=== PATIENT | female | born 1945 | race African-American/Black ===

== ENCOUNTER 2016-07-22 10:31 | Inpatient (IN) | payer MEDICARE, OTHER ==
[~2016-07-22] VITALS: Ht 162.6 cm; Wt 77.1 kg
[~2016-07-22 10:31] MED LIST: UNOBMED
[2016-07-22 10:39] LABS: ABG ALLEN TEST POSITIVE; ABG BASE EXCESS -0.9; ABG PCO2 33.1 mmHg (35.0-45.0)
[2016-07-22 11:12] LABS: ALANINE AMINOTRANSFERASE 7 U/L (3-33); ALBUMIN/GLOBULIN RATIO 0.9 (1.0-2.7); ANION GAP 23 (5-15); ASPARTATE AMINO TRANSFERASE 23 U/L (5-40); CARBON DIOXIDE 24 mEQ/L (20-30); CHLORIDE 90 mEQ/L (98-107); CREATININE 6.6 mg/dL (0.5-0.9); HEMOLYSIS 111; LIPASE 68 U/L (< 60); MAGNESIUM 2.2 mg/dL (1.7-2.5); PHOSPHORUS 5.6 mg/dL (2.5-4.8); SODIUM 137 mEQ/L (135-145); TOTAL PROTEIN 8.7 g/dL (6.6-8.7)
[2016-07-22 11:14] LABS: TROPONIN I < 0.30 ng/mL (<=0.30)
[2016-07-22 11:18] LABS: POTASSIUM 5.5 mEQ/L (3.4-4.9); REFLEX LACTIC ACID YES OR NO YES
[2016-07-22 11:19] LABS: BASOPHILS % (AUTO) 1.1 % (0.0-2.0); EOSINOPHILS % (AUTO) 1.3 % (0.0-3.0); LYMPHOCYTES % (AUTO) 19.4 % (20.0-45.0); MEAN CORPUSCULAR HEMOGLOBIN 34.3 PG (27.0-31.0); MEAN CORPUSCULAR HGB CONC 32.9 G/DL (32.0-36.0); MEAN CORPUSCULAR VOLUME 104 FL (80-99); MEAN PLATELET VOLUME 10.2 FL (6.5-10.1); MONOCYTES % (AUTO) 10.4 % (1.0-10.0); NEUTROPHILS % (AUTO) 67.8 % (45.0-75.0); PLATELET COUNT 217 K/UL (150-450); RED BLOOD COUNT 4.28 M/UL (4.20-5.40); RED CELL DISTRIBUTION WIDTH 14.6 % (11.6-14.8); WHITE BLOOD COUNT 11.1 K/UL (4.8-10.8)
[2016-07-22 11:20] VITALS: BP 184/70
[2016-07-22 11:21] LABS: APPEARANCE,URINE CLEAR; KETONES,URINE 1+ (NEGATIVE); LEUKOCYTE ESTERASE ,URINE 1+ (NEGATIVE); NITRITE,URINE NEGATIVE (NEGATIVE); PH,URINE 8 (4.5-8.0); PROTEIN,URINE 4+ (NEGATIVE); UROBILINOGEN,URINE NORMAL MG/DL (0.0-1.0)
[2016-07-22 11:25] LABS: INR 1.3 (0.9-1.1); PROTHROMBIN TIME 12.8 SEC (9.30-11.50)
[2016-07-22 11:32] LABS: BACTERIA,URINE FEW /HPF; SQUAMOUS EPITHELIAL CELL,UR FEW /LPF (NONE/OCC)
--- NOTE | 2016-07-22 11:40 | Diagnostic Imaging Report ---
Indications: Altered level of consciousness Technique: Continuous helical CT imaging of the brain was performed with nonionic exposure control on a Siemens sensation [address] scanner. Axial and coronal images were reconstructed at 5 mm slice thickness and interval. CTDI volume(s): 70 mGy Total DLP: 1322 mGy-cm Findings: Comparison: None Confluent low attenuation is present in the bilateral periventricular white matter. Ventricles, cisterns, and sulci are diffusely prominent. No evidence of mass or hemorrhage, mass effect, midline shift, hydrocephalus, or increased intracranial pressure. Bone window images are unremarkable. Left mastoid air cells partially opacified. Visualized paranasal sinuses and right mastoid air cells are clear. IMPRESSION: No evidence of acute intracranial pathology Bilateral cerebral periventricular white matter low attenuation, nonspecific, likely chronic microvascular ischemic in nature. Atrophy. Suggestion of mild left mastoiditis The CT scanner at [facility] is accredited by the [employer] and the scans are performed using protocols designed to limit radiation exposure to as low as reasonably achievable to attain images of sufficient resolution adequate for diagnostic evaluation.
--- NOTE | 2016-07-22 11:41 | Diagnostic Imaging Report ---
Indications: Chest pain Technique: Portable AP chest Findings: Comparison: 02/12/2006 Cardiac silhouette remains enlarged. Pulmonary vasculature remains within normal limits. Lungs and pleura remain clear. Desiccation of aortic arch again noted. There is been interval placement of pacemaker in right chest wall, stent in the region of the left subclavian vein. IMPRESSION: No evidence of acute cardiopulmonary disease, unchanged Stable cardiomegaly Interval right chest wall pacemaker placement Interval left clavian vein region stent placement, may relate to dialysis access
[2016-07-22] MEDS ORDERED: Calcium Gluconate 1gm/10ml vial IVP ONE (12:30)
[2016-07-22 12:43] VITALS: BP 179/81
--- NOTE | 2016-07-22 14:27 | Emergency Room Report ---
History of Present Illness General Chief Complaint: Altered Level of Consciousness Source: EMS Present Illness HPI The patient is sent in for altered level of consciousness. Accucheck in field was normal. Patient responding to all questions stating "yes". No h/o fevers, NVD, rashes. The patient is a dialysis patient and should have gone for dialysis today. Family member contacted EMS to bring the patient in. Allergies: Coded Allergies: No Known Allergies (Unverified , 07/22/16) Patient History Limited by: medical condition Past Medical History: see triage record Social History Narrative With daughter Reviewed Nursing Documentation: PMH: Agreed, PSxH: Agreed Nursing Documentation-PMH Hx Cardiac Problems: Yes Hx Hypertension: Yes Hx Diabetes: Yes Hx Dialysis: Yes - M-W-F Review of Systems All Other Systems: limited Physical Exam Vital Signs Date Time Temp Pulse Resp B/P Pulse Ox O2 Delivery O2 Flow Rate FiO2 07/22/16 10:19 98.1 120 16 213/109 97 Room Air Sp02 EP Interpretation: reviewed, normal General Appearance: no apparent distress, alert, Chronically Ill Head: normocephalic Eyes: bilateral eye normal inspection ENT: dry mucus membranes Neck: supple Respiratory: no rhonchi, no retraction, other - tachypnea Cardiovascular #1: no edema, tachycardia, irregularly irregular Cardiovascular #2: 2+ radial (L) - fistula L upper arm Gastrointestinal: normal inspection, normal bowel sounds, non tender, no mass, non-distended Musculoskeletal: back normal, decreased range of motion Neurologic: alert, responsive, motor weakness - bilateral, no resting tremor, other - answers "yes" to all questions Psychiatric: depressed affect - "yes" to all questions - LE weakness bilat Reflexes: 2+ knee (R), 2+ knee (L) Skin: normal inspection Medical Decision Making Diagnostic Impression: Primary Impression: Altered level of consciousness Additional Impressions: Hypoxia ESRD (end stage renal disease) on dialysis Hyperkalemia ER Course Patient presents with ALOC. She is tachypneic. Ddx: electrolyte abnormality, occult infection, CHF, AMI, bleed amongst others. Emergent evaluation with ABG , labs, EKG, CXR and CT of head. Patient appears slightly dry. Very complex patient needing full evaluation. ABG with hypoxia, slight increased vascularity on CXR. Potassium high - treated with calcium. No evidence of infection. Still with ALOC. Needs further evaluatoin and observatoin. Will need dialysis. Admit telemetry Dr. Mac. Laboratory Tests Test 07/22/16 10:32 07/22/16 10:35 07/22/16 10:52 07/22/16 11:33 Arterial Blood pH 7.447 (7.350-7.450) Arterial Blood Partial Pressure CO2 33.1 mmHg (35.0-45.0) L Arterial Blood Partial Pressure O2 73.3 mmHg (75.0-100.0) L Arterial Blood HCO3 22.3 mmol/L (22.0-26.0) Arterial Blood Oxygen Saturation 94.0 % (92.0-98.0) Arterial Blood Base Excess -0.9 Kody Test Positive White Blood Count 11.1 K/UL (4.8-10.8) H Red Blood Count 4.28 M/UL (4.20-5.40) Hemoglobin 14.7 G/DL (12.0-16.0) Hematocrit 44.7 % (37.0-47.0) Mean Corpuscular Volume 104 FL (80-99) H Mean Corpuscular Hemoglobin 34.3 PG (27.0-31.0) H Mean Corpuscular Hemoglobin Concent 32.9 G/DL (32.0-36.0) Red Cell Distribution Width 14.6 % (11.6-14.8) Platelet Count 217 K/UL (150-450) Mean Platelet Volume 10.2 FL (6.5-10.1) H Neutrophils (%) (Auto) 67.8 % (45.0-75.0) Lymphocytes (%) (Auto) 19.4 % (20.0-45.0) L Monocytes (%) (Auto) 10.4 % (1.0-10.0) H Eosinophils (%) (Auto) 1.3 % (0.0-3.0) Basophils (%) (Auto) 1.1 % (0.0-2.0) Prothrombin Time 12.8 SEC (9.30-11.50) H Prothrombin Time INR 1.3 (0.9-1.1) H PTT 29 SEC (23-33) Sodium Level 137 mEQ/L (135-145) Potassium Level 5.5 mEQ/L (3.4-4.9) H Chloride Level 90 mEQ/L (98-107) L Carbon Dioxide Level 24 mEQ/L (20-30) Anion Gap 23 (5-15) H Blood Urea Nitrogen 51 mg/dL (7-23) H Creatinine 6.6 mg/dL (0.5-0.9) H Estimate Glomerular Filtration Rate mL/min (>60) Glucose Level 149 mg/dL (74-106) H Lactic Acid Level 2.50 mmol/L (0.66-2.22) H 2.20 mmol/L (0.66-2.22) Calcium Level 10.0 mg/dL (8.6-10.2) Phosphorus Level 5.6 mg/dL (2.5-4.8) H Magnesium Level 2.2 mg/dL (1.7-2.5) Total Bilirubin 0.5 mg/dL (0.0-1.2) Aspartate Amino Transferase (AST) 23 U/L (5-40) Alanine Aminotransferase (ALT) 7 U/L (3-33) Alkaline Phosphatase 79 U/L (35-104) Total Creatine Kinase 194 U/L (26-140) H Troponin I < 0.30 ng/mL (<=0.30) Pro-B-Type Natriuretic Peptide 73104 pg/mL (0-125) H Total Protein 8.7 g/dL (6.6-8.7) Albumin 4.3 g/dL (3.5-5.2) Globulin 4.4 g/dL Albumin/Globulin Ratio 0.9 (1.0-2.7) L Lipase 68 U/L (< 60) H Urine Color Pale yellow Urine Appearance Clear Urine pH 8 (4.5-8.0) Urine Specific [place] 1.010 (1.005-1.035) Urine Protein 4+ (NEGATIVE) H Urine Glucose (UA) Negative (NEGATIVE) Urine Ketones 1+ (NEGATIVE) H Urine Occult Blood 3+ (NEGATIVE) H Urine Nitrite Negative (NEGATIVE) Urine Bilirubin Negative (NEGATIVE) Urine Urobilinogen Normal MG/DL (0.0-1.0) Urine Leukocyte Esterase 1+ (NEGATIVE) H Urine RBC 5-10 /HPF (0 - 2) H Urine WBC 2-4 /HPF (0 - 2) Urine Squamous Epithelial Cells Few /LPF (NONE/OCC) Urine Bacteria Few /HPF (NONE) EKG Diagnostic Results Rate: normal Rhythm: other - a flutter with variable block ST Segments: no acute changes Rhythm Strip Diag. Results EP Interpretation: yes Rhythm: no PVC's, no ectopy, other - a flutter Chest X-Ray Diagnostic Results EP Interpretation: Yes Findings: no consolidation, no pneumothorax, other - cardiomegally Number of Views: 1 CT/MRI/US Diagnostic Results CT/MRI/US Diagnostic Results : Imaging Test Ordered: head Impression no bleed, mass Last Vital Signs Date Time Temp Pulse Resp B/P Pulse Ox O2 Delivery O2 Flow Rate FiO2 07/22/16 12:43 97.2 105 20 179/81 100 Room Air Status: improved Disposition: ADMITTED INPATIENT Condition: Serious Referrals: NOT CHOSEN IPA/,REFERRING (PCP) Gregorio Villanueva M.D. Jul 22, 2016 14:27
[2016-07-22] MEDS ORDERED: Zolpidem 5mg tab ORAL PRN (14:30)
[2016-07-22] MEDS ORDERED: Mylanta II UD 30ml ORAL PRN (14:30)
[2016-07-22] MEDS ORDERED: DuoNeb 0.5-3(2.5)mg/3ml neb HHN PRN (14:30)
[2016-07-22] MEDS ORDERED: Miralax 17gm pkt ORAL PRN (14:30)
[2016-07-22 14:42] VITALS: BP 167/76
[2016-07-22 15:51] VITALS: BP 163/77
[2016-07-22] MEDS: NovoLOG Insulin Flexpen SUBQ SCH ×2 (16:30→20:34)
[2016-07-22 17:00] VITALS: BP 136/96
--- NOTE | 2016-07-22 19:57 | History and Physical ---
History of Present Illness General Date patient seen: Jul 22, 2016 Reason for Hospitalization: Altered Level of Consciousness Present Illness HPI 71 year old female with hx of ESRF on HD, ICD, brought in by paramedics altered level of consciousness. Pt is only oriented to herself. Doesn't know where she is and why. Pt is admitted to [facility] for evaluation of her acute encephalopathy. She seems comfortable and in no distress. Allergies: Coded Allergies: No Known Allergies (Unverified , 07/22/16) Medication History Miscellaneous Medications Unable to Obtain Medications (Unable To Obtain Meds), (Reported) Patient History Healthcare decision maker patient Resuscitation status Full Code Advanced Directive on File Past Medical/Surgical History Past Medical/Surgical History: (1) ICD (implantable cardioverter-defibrillator) in place (2) ESRD (end stage renal disease) on dialysis Review of Systems All Other Systems: negative except mentioned in HPI Physical Exam General Appearance: WD/WN, no apparent distress Lines, tubes and drains: peripheral, central line HEENT: normocephalic, atraumatic Cardiovascular/Chest: normal peripheral pulses, normal rate Abdomen: normal bowel sounds Last 24 Hour Vital Signs Date Time Temp Pulse Resp B/P Pulse Ox O2 Delivery O2 Flow Rate FiO2 07/22/16 17:00 97.3 86 18 136/96 96 Room Air 07/22/16 15:56 97.1 105 21 163/77 100 Room Air 07/22/16 15:51 97.1 105 21 163/77 100 Room Air 07/22/16 14:42 97.6 102 20 167/76 100 Room Air 07/22/16 12:43 97.2 105 20 179/81 100 Room Air 07/22/16 11:20 97.6 120 18 184/70 99 Room Air 07/22/16 10:19 98.1 120 16 213/109 97 Room Air Laboratory Tests Test 07/22/16 10:32 07/22/16 10:35 07/22/16 10:52 07/22/16 11:33 Arterial Blood pH 7.447 (7.350-7.450) Arterial Blood Partial Pressure CO2 33.1 mmHg (35.0-45.0) L Arterial Blood Partial Pressure O2 73.3 mmHg (75.0-100.0) L Arterial Blood HCO3 22.3 mmol/L (22.0-26.0) Arterial Blood Oxygen Saturation 94.0 % (92.0-98.0) Arterial Blood Base Excess -0.9 Kody Test Positive White Blood Count 11.1 K/UL (4.8-10.8) H Red Blood Count 4.28 M/UL (4.20-5.40) Hemoglobin 14.7 G/DL (12.0-16.0) Hematocrit 44.7 % (37.0-47.0) Mean Corpuscular Volume 104 FL (80-99) H Mean Corpuscular Hemoglobin 34.3 PG (27.0-31.0) H Mean Corpuscular Hemoglobin Concent 32.9 G/DL (32.0-36.0) Red Cell Distribution Width 14.6 % (11.6-14.8) Platelet Count 217 K/UL (150-450) Mean Platelet Volume 10.2 FL (6.5-10.1) H Neutrophils (%) (Auto) 67.8 % (45.0-75.0) Lymphocytes (%) (Auto) 19.4 % (20.0-45.0) L Monocytes (%) (Auto) 10.4 % (1.0-10.0) H Eosinophils (%) (Auto) 1.3 % (0.0-3.0) Basophils (%) (Auto) 1.1 % (0.0-2.0) Prothrombin Time 12.8 SEC (9.30-11.50) H Prothromb Time International Ratio 1.3 (0.9-1.1) H Activated Partial Thromboplast Time 29 SEC (23-33) Sodium Level 137 mEQ/L (135-145) Potassium Level 5.5 mEQ/L (3.4-4.9) H Chloride Level 90 mEQ/L (98-107) L Carbon Dioxide Level 24 mEQ/L (20-30) Anion Gap 23 (5-15) H Blood Urea Nitrogen 51 mg/dL (7-23) H Creatinine 6.6 mg/dL (0.5-0.9) H Estimat Glomerular Filtration Rate mL/min (>60) Glucose Level 149 mg/dL (74-106) H Lactic Acid Level 2.50 mmol/L (0.66-2.22) H 2.20 mmol/L (0.66-2.22) Calcium Level 10.0 mg/dL (8.6-10.2) Phosphorus Level 5.6 mg/dL (2.5-4.8) H Magnesium Level 2.2 mg/dL (1.7-2.5) Total Bilirubin 0.5 mg/dL (0.0-1.2) Aspartate Amino Transf (AST/SGOT) 23 U/L (5-40) Alanine Aminotransferase (ALT/SGPT) 7 U/L (3-33) Alkaline Phosphatase 79 U/L (35-104) Total Creatine Kinase 194 U/L (26-140) H Troponin I < 0.30 ng/mL (<=0.30) Pro-B-Type Natriuretic Peptide 95727 pg/mL (0-125) H Total Protein 8.7 g/dL (6.6-8.7) Albumin 4.3 g/dL (3.5-5.2) Globulin 4.4 g/dL Albumin/Globulin Ratio 0.9 (1.0-2.7) L Lipase 68 U/L (< 60) H Urine Color Pale yellow Urine Appearance Clear Urine pH 8 (4.5-8.0) Urine Specific [place] 1.010 (1.005-1.035) Urine Protein 4+ (NEGATIVE) H Urine Glucose (UA) Negative (NEGATIVE) Urine Ketones 1+ (NEGATIVE) H Urine Occult Blood 3+ (NEGATIVE) H Urine Nitrite Negative (NEGATIVE) Urine Bilirubin Negative (NEGATIVE) Urine Urobilinogen Normal MG/DL (0.0-1.0) Urine Leukocyte Esterase 1+ (NEGATIVE) H Urine RBC 5-10 /HPF (0 - 2) H Urine WBC 2-4 /HPF (0 - 2) Urine Squamous Epithelial Cells Few /LPF (NONE/OCC) Urine Bacteria Few /HPF (NONE) Height (Feet): 5 Height (Inches): 4.00 Weight (Pounds): 170 Medications Current Medications Medications (Trade) Dose Ordered Sig/Sherry Route PRN Reason Start Time Stop Time Status Last Admin Dose Admin Acetaminophen (Tylenol) 650 mg Q4H PRN ORAL fever 07/22/16 14:30 08/21/16 14:29 Al Hydroxide/Mg Hydroxide (Mylanta II) 30 ml Q6H PRN ORAL dyspepsia 07/22/16 14:30 08/21/16 14:29 Albuterol/ Ipratropium (DuoNeb 0.5-3(2.5)mg/3ml) 3 ml Q6HRT PRN HHN dyspnea 07/22/16 14:30 07/27/16 14:29 Clonidine HCl (Catapres) 0.1 mg Q4H PRN ORAL For High Blood Pressure 07/22/16 14:30 08/21/16 14:29 Dextrose (Dextrose 50%) STAT PRN IV Hypoglycemia 07/22/16 14:30 08/21/16 14:29 Furosemide (Lasix) 100 mg EVERY 8 HOURS PRN IV dyspnea 07/22/16 14:30 08/21/16 14:29 Heparin Sodium (Porcine) (Heparin 5000 units/ml) 5,000 units EVERY 12 HOURS SUBQ 07/22/16 21:00 08/21/16 20:59 Insulin Aspart (NovoLOG) BEFORE MEALS AND HS SUBQ 07/22/16 16:30 08/21/16 16:29 Morphine Sulfate (Morphine Sulfate) 1 mg EVERY 4 HOURS PRN IVP For Pain 07/22/16 14:30 07/29/16 14:29 Ondansetron HCl (Zofran) 4 mg Q6H PRN IVP Nausea & Vomiting 07/22/16 14:30 08/21/16 14:29 Polyethylene Glycol (Miralax) 17 gm HSPRN PRN ORAL Constipation 07/22/16 14:30 08/21/16 14:29 Zolpidem Tartrate (Ambien) 5 mg HSPRN PRN ORAL Insomnia 07/22/16 14:30 08/21/16 14:29 Assessment/Plan Problem List: (1) Acute encephalopathy ICD Codes: G93.40 - Encephalopathy, unspecified SNOMED: 5338987 (2) ICD (implantable cardioverter-defibrillator) in place ICD Codes: Z95.810 - Presence of automatic (implantable) cardiac defibrillator SNOMED: 733530316, 214340333 (3) ESRD (end stage renal disease) on dialysis ICD Codes: N18.6 - End stage renal disease; Z99.2 - Dependence on renal dialysis SNOMED: 627372685, 84687383 (4) Hypoxia ICD Codes: R09.02 - Hypoxemia SNOMED: 126645452, 45371103 (5) Hyperkalemia ICD Codes: E87.5 - Hyperkalemia; Z99.2 - Dependence on renal dialysis SNOMED: 57829860, 66069744 Assessment/Plan neuro evaluation Cardio evaluation to check out ICD renal evaluation check electrolytes. pt ot social service MISSY BARRY Jul 22, 2016 19:57
[2016-07-22 20:00] VITALS: BP 158/88
[2016-07-22] MEDS: Heparin 5000 units/ml inj SUBQ SCH (20:35)
[2016-07-23] VITALS (9 sets, daily range): BP systolic 101–177; BP diastolic 62–92
[2016-07-23] MEDS ORDERED: Heparin Sod 1000 units/ml 10ml IV ONE (04:00)
[2016-07-23] MEDS: NovoLOG Insulin Flexpen SUBQ SCH ×4 (05:51→21:00)
[2016-07-23 08:00] LABS: EOSINOPHILS % (AUTO) 2.1 % (0.0-3.0); LYMPHOCYTES % (AUTO) 21.3 % (20.0-45.0); MEAN CORPUSCULAR HEMOGLOBIN 32.4 PG (27.0-31.0); MEAN CORPUSCULAR HGB CONC 31.9 G/DL (32.0-36.0); MEAN CORPUSCULAR VOLUME 102 FL (80-99); MEAN PLATELET VOLUME 8.6 FL (6.5-10.1); MONOCYTES % (AUTO) 12.1 % (1.0-10.0); NEUTROPHILS % (AUTO) 63.5 % (45.0-75.0); PLATELET COUNT 203 K/UL (150-450); RED BLOOD COUNT 4.54 M/UL (4.20-5.40); RED CELL DISTRIBUTION WIDTH 14.3 % (11.6-14.8); WHITE BLOOD COUNT 9.6 K/UL (4.8-10.8)
[2016-07-23 08:11] LABS: ALANINE AMINOTRANSFERASE 5 U/L (3-33); ALBUMIN/GLOBULIN RATIO 1.1 (1.0-2.7); ANION GAP 22 (5-15); ASPARTATE AMINO TRANSFERASE 13 U/L (5-40); CALCIUM 9.9 mg/dL (8.6-10.2); CARBON DIOXIDE 24 mEQ/L (20-30); CHLORIDE 93 mEQ/L (98-107); CHOLESTEROL 221 mg/dL (< 200); CHOLESTEROL/HDL RATIO 4.8 (3.3-4.4); CREATININE 7.6 mg/dL (0.5-0.9); HEMOLYSIS 3; LDL CHOLESTEROL (CALC.) 137 mg/dL (60-99); POTASSIUM 4.5 mEQ/L (3.4-4.9); SODIUM 139 mEQ/L (135-145)
[2016-07-23 08:22] LABS: THYROID STIMULATING HORMONE 0.631 uIU/mL (0.300-4.500)
[2016-07-23] MEDS: Heparin 5000 units/ml inj SUBQ SCH (08:32)
[2016-07-23 09:17] LABS: HEMOGLOBIN A1C 5.5 % (< 6.0)
--- NOTE | 2016-07-23 10:31 | Cardiology Progress Note ---
Assessment/Plan Assessment/Plan encephalopathy possibly hypertensive esrd on dialysis htn dm hyperlipidemia icd implantation with subsequent sbe require replacement in 2015 afib reported cm d/w pmd dr blake [id number] meds updated will have ekg will keep on tele echo anti hypertensive meds dialysis repeat cardiac enzyme will follow [id number] Objective Last 24 Hour Vital Signs Date Time Temp Pulse Resp B/P Pulse Ox O2 Delivery O2 Flow Rate FiO2 07/23/16 08:38 98.2 94 20 152/92 95 Room Air 07/23/16 04:00 97.8 80 20 140/84 98 Room Air 07/23/16 04:00 97 07/23/16 01:38 161/75 07/23/16 00:00 97.6 94 21 177/79 98 Room Air 07/23/16 00:00 100 07/22/16 20:00 100 07/22/16 20:00 97.8 100 19 158/88 98 Room Air 07/22/16 17:00 97.3 86 18 136/96 96 Room Air 07/22/16 15:56 97.1 105 21 163/77 100 Room Air 07/22/16 15:51 97.1 105 21 163/77 100 Room Air 07/22/16 14:42 97.6 102 20 167/76 100 Room Air 07/22/16 12:43 97.2 105 20 179/81 100 Room Air 07/22/16 11:20 97.6 120 18 184/70 99 Room Air Intake and Output 07/22/16 07/23/16 19:00 07:00 Output Total 50 ml 400 ml Balance -50 ml -400 ml Output Urine Total 50 ml 400 ml Laboratory Tests Test 07/22/16 10:32 07/22/16 10:35 07/22/16 10:52 07/22/16 11:33 Arterial Blood pH 7.447 (7.350-7.450) Arterial Blood Partial Pressure CO2 33.1 mmHg (35.0-45.0) L Arterial Blood Partial Pressure O2 73.3 mmHg (75.0-100.0) L Arterial Blood HCO3 22.3 mmol/L (22.0-26.0) Arterial Blood Oxygen Saturation 94.0 % (92.0-98.0) Arterial Blood Base Excess -0.9 Kody Test Positive White Blood Count 11.1 K/UL (4.8-10.8) H Red Blood Count 4.28 M/UL (4.20-5.40) Hemoglobin 14.7 G/DL (12.0-16.0) Hematocrit 44.7 % (37.0-47.0) Mean Corpuscular Volume 104 FL (80-99) H Mean Corpuscular Hemoglobin 34.3 PG (27.0-31.0) H Mean Corpuscular Hemoglobin Concent 32.9 G/DL (32.0-36.0) Red Cell Distribution Width 14.6 % (11.6-14.8) Platelet Count 217 K/UL (150-450) Mean Platelet Volume 10.2 FL (6.5-10.1) H Neutrophils (%) (Auto) 67.8 % (45.0-75.0) Lymphocytes (%) (Auto) 19.4 % (20.0-45.0) L Monocytes (%) (Auto) 10.4 % (1.0-10.0) H Eosinophils (%) (Auto) 1.3 % (0.0-3.0) Basophils (%) (Auto) 1.1 % (0.0-2.0) Prothrombin Time 12.8 SEC (9.30-11.50) H Prothromb Time International Ratio 1.3 (0.9-1.1) H Activated Partial Thromboplast Time 29 SEC (23-33) Sodium Level 137 mEQ/L (135-145) Potassium Level 5.5 mEQ/L (3.4-4.9) H Chloride Level 90 mEQ/L (98-107) L Carbon Dioxide Level 24 mEQ/L (20-30) Anion Gap 23 (5-15) H Blood Urea Nitrogen 51 mg/dL (7-23) H Creatinine 6.6 mg/dL (0.5-0.9) H Estimat Glomerular Filtration Rate mL/min (>60) Glucose Level 149 mg/dL (74-106) H Lactic Acid Level 2.50 mmol/L (0.66-2.22) H 2.20 mmol/L (0.66-2.22) Calcium Level 10.0 mg/dL (8.6-10.2) Phosphorus Level 5.6 mg/dL (2.5-4.8) H Magnesium Level 2.2 mg/dL (1.7-2.5) Total Bilirubin 0.5 mg/dL (0.0-1.2) Aspartate Amino Transf (AST/SGOT) 23 U/L (5-40) Alanine Aminotransferase (ALT/SGPT) 7 U/L (3-33) Alkaline Phosphatase 79 U/L (35-104) Total Creatine Kinase 194 U/L (26-140) H Troponin I < 0.30 ng/mL (<=0.30) Pro-B-Type Natriuretic Peptide 78889 pg/mL (0-125) H Total Protein 8.7 g/dL (6.6-8.7) Albumin 4.3 g/dL (3.5-5.2) Globulin 4.4 g/dL Albumin/Globulin Ratio 0.9 (1.0-2.7) L Lipase 68 U/L (< 60) H Urine Color Pale yellow Urine Appearance Clear Urine pH 8 (4.5-8.0) Urine Specific [place] 1.010 (1.005-1.035) Urine Protein 4+ (NEGATIVE) H Urine Glucose (UA) Negative (NEGATIVE) Urine Ketones 1+ (NEGATIVE) H Urine Occult Blood 3+ (NEGATIVE) H Urine Nitrite Negative (NEGATIVE) Urine Bilirubin Negative (NEGATIVE) Urine Urobilinogen Normal MG/DL (0.0-1.0) Urine Leukocyte Esterase 1+ (NEGATIVE) H Urine RBC 5-10 /HPF (0 - 2) H Urine WBC 2-4 /HPF (0 - 2) Urine Squamous Epithelial Cells Few /LPF (NONE/OCC) Urine Bacteria Few /HPF (NONE) Test 07/23/16 07:15 White Blood Count 9.6 K/UL (4.8-10.8) Red Blood Count 4.54 M/UL (4.20-5.40) Hemoglobin 14.7 G/DL (12.0-16.0) Hematocrit 46.2 % (37.0-47.0) Mean Corpuscular Volume 102 FL (80-99) H Mean Corpuscular Hemoglobin 32.4 PG (27.0-31.0) H Mean Corpuscular Hemoglobin Concent 31.9 G/DL (32.0-36.0) L Red Cell Distribution Width 14.3 % (11.6-14.8) Platelet Count 203 K/UL (150-450) Mean Platelet Volume 8.6 FL (6.5-10.1) Neutrophils (%) (Auto) 63.5 % (45.0-75.0) Lymphocytes (%) (Auto) 21.3 % (20.0-45.0) Monocytes (%) (Auto) 12.1 % (1.0-10.0) H Eosinophils (%) (Auto) 2.1 % (0.0-3.0) Basophils (%) (Auto) 1.0 % (0.0-2.0) Sodium Level 139 mEQ/L (135-145) Potassium Level 4.5 mEQ/L (3.4-4.9) Chloride Level 93 mEQ/L (98-107) L Carbon Dioxide Level 24 mEQ/L (20-30) Anion Gap 22 (5-15) H Blood Urea Nitrogen 67 mg/dL (7-23) H Creatinine 7.6 mg/dL (0.5-0.9) H Estimat Glomerular Filtration Rate mL/min (>60) Glucose Level 128 mg/dL (74-106) H Hemoglobin A1c 5.5 % (< 6.0) Calcium Level 9.9 mg/dL (8.6-10.2) Total Bilirubin 0.5 mg/dL (0.0-1.2) Aspartate Amino Transf (AST/SGOT) 13 U/L (5-40) Alanine Aminotransferase (ALT/SGPT) 5 U/L (3-33) Alkaline Phosphatase 73 U/L (35-104) Total Protein 8.0 g/dL (6.6-8.7) Albumin 4.2 g/dL (3.5-5.2) Globulin 3.8 g/dL Albumin/Globulin Ratio 1.1 (1.0-2.7) Triglycerides Level 188 mg/dL (< 150) H Cholesterol Level 221 mg/dL (< 200) H LDL Cholesterol 137 mg/dL (60-99) H HDL Cholesterol 46 mg/dL (> 60) Cholesterol/HDL Ratio 4.8 (3.3-4.4) H Thyroid Stimulating Hormone (TSH) 0.631 uIU/mL (0.300-4.500) RD CLARK Jul 23, 2016 10:31
[2016-07-23] MEDS: Metoprolol 25mg tab ORAL SCH ×2 (11:44→23:09)
--- NOTE | 2016-07-23 12:36 | Pulmonology Progress Note ---
Assessment/Plan Problems: (1) Acute encephalopathy (2) ICD (implantable cardioverter-defibrillator) in place (3) ESRD (end stage renal disease) on dialysis (4) Hypoxia (5) Hyperkalemia Assessment/Plan all noted cardio and neuro saw the patient HD prn f/u labs pt/ot Subjective ROS Limited/Unobtainable: No Constitutional: Reports: no symptoms HEENT: Repors: no symptoms Respiratory: Reports: no symptoms Allergies: Coded Allergies: No Known Allergies (Unverified , 07/22/16) Objective Last 24 Hour Vital Signs Date Time Temp Pulse Resp B/P Pulse Ox O2 Delivery O2 Flow Rate FiO2 07/23/16 11:47 98.1 107 19 131/73 95 Room Air 07/23/16 11:44 107 131/73 07/23/16 11:44 131/73 07/23/16 08:38 98.2 94 20 152/92 95 Room Air 07/23/16 04:00 97.8 80 20 140/84 98 Room Air 07/23/16 04:00 97 07/23/16 01:38 161/75 07/23/16 00:00 97.6 94 21 177/79 98 Room Air 07/23/16 00:00 100 07/22/16 20:00 100 07/22/16 20:00 97.8 100 19 158/88 98 Room Air 07/22/16 17:00 97.3 86 18 136/96 96 Room Air 07/22/16 15:56 97.1 105 21 163/77 100 Room Air 07/22/16 15:51 97.1 105 21 163/77 100 Room Air 07/22/16 14:42 97.6 102 20 167/76 100 Room Air 07/22/16 12:43 97.2 105 20 179/81 100 Room Air Intake and Output 07/22/16 07/23/16 19:00 07:00 Output Total 50 ml 400 ml Balance -50 ml -400 ml Output Urine Total 50 ml 400 ml General Appearance: WD/WN HEENT: normocephalic, atraumatic Respiratory/Chest: chest wall non-tender, lungs clear Breasts: no masses Cardiovascular: normal peripheral pulses Abdomen: normal bowel sounds, soft, non tender Genitourinary: normal external genitalia Extremities: no cyanosis Skin: no rash Laboratory Tests 07/23/16 07:15: White Blood Count 9.6, Red Blood Count 4.54, Hemoglobin 14.7, Hematocrit 46.2, Mean Corpuscular Volume 102H, Mean Corpuscular Hemoglobin 32.4H, Mean Corpuscular Hemoglobin Concent 31.9L, Red Cell Distribution Width 14.3, Platelet Count 203, Mean Platelet Volume 8.6, Neutrophils (%) (Auto) 63.5, Lymphocytes (%) (Auto) 21.3, Monocytes (%) (Auto) 12.1H, Eosinophils (%) (Auto) 2.1, Basophils (%) (Auto) 1.0, Sodium Level 139, Potassium Level 4.5, Chloride Level 93L, Carbon Dioxide Level 24, Anion Gap 22H, Blood Urea Nitrogen 67H, Creatinine 7.6H, Estimat Glomerular Filtration Rate , Glucose Level 128H, Hemoglobin A1c 5.5, Calcium Level 9.9, Total Bilirubin 0.5, Aspartate Amino Transf (AST/SGOT) 13, Alanine Aminotransferase (ALT/SGPT) 5, Alkaline Phosphatase 73, Total Protein 8.0, Albumin 4.2, Globulin 3.8, Albumin/Globulin Ratio 1.1, Triglycerides Level 188H, Cholesterol Level 221H, LDL Cholesterol 137H, HDL Cholesterol 46, Cholesterol/HDL Ratio 4.8H, Thyroid Stimulating Hormone (TSH) 0.631 Current Medications Medications (Trade) Dose Ordered Sig/Sherry Route PRN Reason Start Time Stop Time Status Last Admin Dose Admin Acetaminophen (Tylenol) 650 mg Q4H PRN ORAL fever 07/22/16 14:30 08/21/16 14:29 Al Hydroxide/Mg Hydroxide (Mylanta II) 30 ml Q6H PRN ORAL dyspepsia 07/22/16 14:30 08/21/16 14:29 Albuterol/ Ipratropium 3 ml 3 ml Q6HRT PRN HHN dyspnea 07/22/16 14:30 07/27/16 14:29 Apixaban (Eliquis) 5 mg Q12H ORAL 07/23/16 21:00 08/22/16 20:59 Atorvastatin Calcium (Lipitor) 40 mg BEDTIME ORAL 07/23/16 21:00 08/22/16 20:59 Benazepril HCl (Lotensin) 40 mg DAILY ORAL 07/23/16 12:00 08/22/16 11:59 07/23/16 11:44 Clonidine HCl (Catapres) 0.1 mg Q4H PRN ORAL For High Blood Pressure 07/22/16 14:30 08/21/16 14:29 07/23/16 01:38 Clopidogrel Bisulfate (Plavix) 75 mg DAILY ORAL 07/23/16 13:00 08/22/16 12:59 Dextrose (Dextrose 50%) STAT PRN IV Hypoglycemia 07/22/16 14:30 08/21/16 14:29 Furosemide (Lasix) 100 mg EVERY 8 HOURS PRN IV dyspnea 07/22/16 14:30 08/21/16 14:29 Hydralazine HCl (Apresoline) 50 mg Q8HR ORAL 07/23/16 14:00 08/22/16 13:59 Insulin Aspart (NovoLOG) BEFORE MEALS AND HS SUBQ 07/22/16 16:30 08/21/16 16:29 07/23/16 11:46 Metoprolol Tartrate (Lopressor) 25 mg Q12HR ORAL 07/23/16 12:00 08/22/16 11:59 07/23/16 11:44 Morphine Sulfate (Morphine Sulfate) 1 mg EVERY 4 HOURS PRN IVP For Pain 07/22/16 14:30 07/29/16 14:29 Ondansetron HCl (Zofran) 4 mg Q6H PRN IVP Nausea & Vomiting 07/22/16 14:30 08/21/16 14:29 Polyethylene Glycol (Miralax) 17 gm HSPRN PRN ORAL Constipation 07/22/16 14:30 08/21/16 14:29 Sodium Chloride (Sodium Chloride 1000ml bag) 1,000 ml @ 500 mls/hr Q2H PRN IVLG sbp<90 during hd 07/23/16 04:00 08/22/16 03:59 Zolpidem Tartrate (Ambien) 5 mg HSPRN PRN ORAL Insomnia 07/22/16 14:30 08/21/16 14:29 MISSY BARRY Jul 23, 2016 12:36
[2016-07-23] MEDS: HydrALAZINE 50mg tab ORAL SCH ×2 (14:28→22:00)
--- NOTE | 2016-07-23 15:05 | Consultation ---
Consult Note Assessment/Plan Renal consult dictated # [id number] JANET SWARTZ Jul 23, 2016 15:04
[2016-07-23] MEDS: Nephrovite tab ORAL SCH (15:30)
--- NOTE | 2016-07-23 20:37 | Consultation ---
DATE OF CONSULTATION: 07/23/2016 REFERRING PHYSICIAN: Nakul Mac M.D. REASON FOR REFERRAL: Hypertension, altered mentation, renal failure, and congestive heart failure. HISTORY OF PRESENT ILLNESS: This is a 71-year-old female who is a followed at several places including previously at [facility] in 2013 for which she had a defibrillator placed by [employer] by Dr. Hunter Long. Information was obtained from my discussion with the patient, her sister as well as her primary care physician, Dr. Chong, phone number [phone]. The outcomes specialist run sheet indicates that the patient was transferred to the emergency room because of mental status changes. According to her sister, the supervisor natural gas plant called her indicating that the patient was rather confused and brought down to the emergency room at [facility], has been admitted. The sister indicate that she was able to talk with her but the patient just did not look like she knew who her sister was. The patient herself at the present time is awake and responsive. Denies any chest pain. Does admit to have some shortness of breath. She uses two pillows, has dizziness on standing and palpitations. She absolutely denies any pain, pressure, tightness or heaviness of any kind in her in her chest. PAST MEDICAL HISTORY: Positive for history of congestive heart failure, atrial fibrillation, cardiomyopathy, hypertension, diabetes mellitus. She has had an ICD implanted by Dr. Long in [address] Chong subsequently is apparently she developed infection and ICD was changed in 2014 in [facility]. End-stage renal disease, on hemodialysis. MEDICATIONS: Her medications at home include Lipitor 40 mg, benazepril 40 mg, Coreg 6.25 twice a day, Plavix 75 mg, Lasix 20 mg, hydralazine 50 twice a day, Lantus insulin 16 units, Renvela 800 mg three times a day, tramadol twice a day, Eliquis 2.5 twice a day as well as Xanax. Her most recent retail salesperson has been Dr. Sheldon Moore. ALLERGIES: She is not allergic to any medications. SOCIAL HISTORY: She does not dictate herself that she used to smoke more than 10 or 12 years ago but not at the present time. No alcohol and no drugs. She lives at home. 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 REVIEW OF SYSTEMS: Gastrointestinal: She denies any nausea or vomiting. No diarrhea or constipation. No bloody stools or black stools. Genitourinary: She does not have any burning on urination. She denies any blood in her urine. Pulmonary: Denies any significant cough and wheezing. Constitutional: She feels chills sometimes, she says no fevers. Neurologic: Numbness and tingling sensation in her hand on the right side. PHYSICAL EXAMINATION: GENERAL: Shows to be morbidly obese elderly female, in no respiratory distress. NECK: Is supple. No jugular venous distention. No abdominojugular reflux noted. LUNGS: Clear to auscultation and percussion. CARDIAC: S1 is normal. S2 is normal. Regular rate and rhythm. No heaves, thrills, gallops, or rubs are noted. ABDOMEN: Obese. Positive bowel sounds. Nontender. EXTREMITIES: There is no evidence of clubbing, cyanosis, nor is there any edema. NEUROLOGIC: She is awake and alert and responsive at the present time. LABORATORY VALUES: White count is 9.6, today down from 11.1 with hemoglobin of 14.7, platelet count of 203,000. Blood gases, pH of 7.47, pCO2 32, pO2 of 73, bicarb of 22. Sodium is 139, potassium 4.5, chloride 93, bicarbonate of 24, BUN 67, creatinine 1.6, glucose of 128. Lactic acid . Calcium is 9.9. Liver [place] [address] initially yesterday and total cholesterol 221 with a LDL of 137, and HDL of 46. TSH of 0.63. Lipase is 68. INR is 1.3. Urinalysis shows 5 to 10 RBCs, 2 to 4 WBCs. Chest x-ray performed in the emergency room last night shows no evidence of acute cardiopulmonary disease, stable cardiomegaly, right chest wall pacemaker device was noted, left subclavian vein short stent or dialysis catheter is noted. A CT scan of the head was performed that showed no evidence of acute intracranial pathology. [employer] run sheet was reviewed when she was found initially by the paramedics that she had a blood pressure documented by them was 229/161 subsequently to 213/109 subsequently her blood pressures have improved to 152/92. Checo Santiago M.D. DR: Renata JOB#: [id number] CC:
--- NOTE | 2016-07-23 20:48 | Consultation ---
DATE OF CONSULTATION: 07/23/2016 NEPHROLOGY CONSULTATION CONSULTING PHYSICIAN: Candido Garcia M.D. REFERRING PHYSICIAN: Nakul Mac M.D. REASON FOR CONSULTATION: End-stage renal disease, requiring hemodialysis. HISTORY OF PRESENT ILLNESS: This is a 71-year-old female, who was brought in by paramedics for change in mental status. The patient has some caregivers who called the paramedics. The patient is unable to provide much history. History is obtained from the chart and also talking to a sister who is at bedside. According to the sister, the patient could not even recognize her before. The patient has a history of end-stage renal disease and gets dialysis every Friday, Friday, and Friday. I was asked to see the patient on behalf of Dr. Pedroza for nephrology. The patient's last dialysis was last Friday. PAST MEDICAL HISTORY: The patient has a history of ICD placement, history of hypertension, diabetes, hyperlipidemia, and atrial fibrillation. MEDICATIONS: Reviewed in the MAR. ALLERGIES: No known drug allergies. SOCIAL HISTORY: No reported history of smoking or alcohol abuse. REVIEW OF SYSTEMS: Noncontributory. PHYSICAL EXAMINATION: GENERAL: The patient is an elderly female, in no acute distress. VITAL SIGNS: Blood pressure 129/72, pulse 107, respirations 19, and temperature 98.1 degrees. HEENT: [place] conjunctivae. Anicteric sclerae. NECK: Supple. LUNGS: Clear to auscultation. HEART: S1 and S2 without murmurs or rubs. ABDOMEN: Soft and nontender. EXTREMITIES: No cyanosis or edema. The patient has a left upper arm fistula with pseudoaneurysms with good bruit. LABORATORY FINDINGS: The chemistry panel shows a serum sodium 139, potassium 4.5, chloride 93, CO2 24, BUN 67, and creatinine 7.6. Blood sugar is 128. Albumin is 3.8. CBC shows a WBC of 9.6, hematocrit 46.2, hemoglobin 14.7, and platelets 203,000. UA shows 4+ protein and 5 to 10 RBCs per high-power field. ASSESSMENT: This is a 71-year-old female with history of end-stage renal disease, on hemodialysis every Friday, Friday, and Friday. She was admitted with change in mental status. The patient has diabetes and hypertension and atrial fibrillation status post implantable cardioverter-defibrillator placement. PLAN: The patient will be dialyzed today. Her laboratories will be followed. Adjustment were made in the patient's medication as needed. The patient will be seen by Dr. Pedroza tomorrow. Thank you very much for this consultation. Candido Garcia M.D. DR: JULISA JOB#: [id number] CC:
[2016-07-23] MEDS ORDERED: Carvedilol 6.25mg Tab ORAL SCH (21:00)
[2016-07-23] MEDS: Eliquis 2.5mg tablet ORAL SCH (22:01)
[2016-07-24] VITALS (7 sets, daily range): BP systolic 103–141; BP diastolic 49–69
[2016-07-24] MEDS: HydrALAZINE 50mg tab ORAL SCH ×3 (06:10→21:36)
[2016-07-24] MEDS: NovoLOG Insulin Flexpen SUBQ SCH ×4 (06:11→21:37)
[2016-07-24 06:25] LABS: BASOPHILS % (AUTO) 1.1 % (0.0-2.0); EOSINOPHILS % (AUTO) 2.6 % (0.0-3.0); LYMPHOCYTES % (AUTO) 25.3 % (20.0-45.0); MEAN CORPUSCULAR HEMOGLOBIN 32.5 PG (27.0-31.0); MEAN CORPUSCULAR HGB CONC 31.1 G/DL (32.0-36.0); MEAN CORPUSCULAR VOLUME 104 FL (80-99); MEAN PLATELET VOLUME 9.9 FL (6.5-10.1); NEUTROPHILS % (AUTO) 55.9 % (45.0-75.0); PLATELET COUNT 192 K/UL (150-450); RED CELL DISTRIBUTION WIDTH 14.6 % (11.6-14.8); WHITE BLOOD COUNT 9.8 K/UL (4.8-10.8)
[2016-07-24 06:51] LABS: TROPONIN I < 0.30 ng/mL (<=0.30)
[2016-07-24 07:03] LABS: ANION GAP 19 (5-15); CALCIUM 9.7 mg/dL (8.6-10.2); CARBON DIOXIDE 32 mEQ/L (20-30); CHLORIDE 89 mEQ/L (98-107); CREATININE 5.7 mg/dL (0.5-0.9); HEMOLYSIS 8; POTASSIUM 3.8 mEQ/L (3.4-4.9); SODIUM 140 mEQ/L (135-145)
[2016-07-24] MEDS: Eliquis 2.5mg tablet ORAL SCH ×2 (08:13→21:35)
[2016-07-24] MEDS: Nephrovite tab ORAL SCH (08:13)
[2016-07-24] MEDS: Metoprolol 25mg tab ORAL SCH ×2 (08:13→21:35)
--- NOTE | 2016-07-24 09:23 | General Progress Note ---
Assessment/Plan Status: stable Assessment/Plan status: This is a 71-year-old female with history of end-stage renal disease, on hemodialysis every Friday, Friday, and Friday. She was admitted with change in mental status. The patient has diabetes and hypertension and atrial fibrillation status post implantable cardioverter-defibrillator placement. Plan: Dialysed yesterday - Dialysis in am Gastric support Subjective ROS Limited/Unobtainable: No Constitutional: Reports: malaise Allergies: Coded Allergies: No Known Allergies (Unverified , 07/22/16) Objective Last 24 Hour Vital Signs Date Time Temp Pulse Resp B/P Pulse Ox O2 Delivery O2 Flow Rate FiO2 07/24/16 08:13 83 141/68 07/24/16 08:13 141/68 07/24/16 07:55 97.7 83 18 141/68 96 Room Air 07/24/16 06:10 129/63 07/24/16 04:00 98.2 18 129/63 83 Room Air 07/24/16 04:00 86 07/24/16 00:00 98.4 54 20 135/67 96 Room Air 07/24/16 00:00 80 07/23/16 23:09 90 133/67 07/23/16 22:00 108/63 07/23/16 21:56 97.4 120 20 123/69 96 Room Air 07/23/16 21:54 Room Air 07/23/16 20:00 96 07/23/16 20:00 97.7 108 16 101/63 98 Room Air 07/23/16 18:15 Room Air 07/23/16 18:15 98.1 100 20 122/67 96 Room Air 07/23/16 16:05 98.1 95 20 120/62 96 Room Air 07/23/16 16:00 99 07/23/16 15:43 142/78 07/23/16 14:28 129/72 07/23/16 12:00 101 07/23/16 11:47 98.1 107 19 131/73 95 Room Air 07/23/16 11:44 107 131/73 07/23/16 11:44 131/73 Intake and Output 07/23/16 07/24/16 18:59 06:59 Intake Total 720 ml 120 ml Output Total 1600 ml Balance 720 ml -1480 ml Intake Oral 720 ml 120 ml Output Urine Total 100 ml Hemodialysis UF 1500 ml # Bowel Movements 1 Laboratory Tests 07/24/16 05:10: White Blood Count 9.8, Red Blood Count 4.60, Hemoglobin 14.9, Hematocrit 48.0H, Mean Corpuscular Volume 104H, Mean Corpuscular Hemoglobin 32.5H, Mean Corpuscular Hemoglobin Concent 31.1L, Red Cell Distribution Width 14.6, Platelet Count 192, Mean Platelet Volume 9.9, Neutrophils (%) (Auto) 55.9, Lymphocytes (%) (Auto) 25.3, Monocytes (%) (Auto) 15.0H, Eosinophils (%) (Auto) 2.6, Basophils (%) (Auto) 1.1, Sodium Level 140, Potassium Level 3.8, Chloride Level 89L, Carbon Dioxide Level 32H, Anion Gap 19H, Blood Urea Nitrogen 38#H, Creatinine 5.7H, Estimat Glomerular Filtration Rate , Glucose Level 128H, Calcium Level 9.7, Troponin I < 0.30 Height (Feet): 5 Height (Inches): 4.00 Weight (Pounds): 170 General Appearance: no apparent distress Cardiovascular: normal rate, arrhythmia Respiratory/Chest: decreased breath sounds Abdomen: soft AUBREY SWEENEY Jul 24, 2016 09:23
--- NOTE | 2016-07-24 11:13 | Wound Care Consultation ---
Wound Assessment Wound Assessment #1: Wound Number: #1 Wound Present on Admission: Yes New Wound: No Status Change of Wound: No Wound Location Body Site Modif: right Wound Location Body Site: breast fold Wound Type: rash - intertrigo Percent of Wound [place]/Red: 100 Wound Drainage Amount: None Wound Drainage Odor: None/Absent Tissue Surrounding Wound: Intact Wound General Appearance: Reddened, Open to air Wound Assessment #2: Wound Number: #2 Wound Present on Admission: Yes New Wound: No Status Change of Wound: No Wound Location Body Site Modif: left Wound Location Body Site: breast fold Wound Type: rash - intertrigo Percent of Wound [place]/Red: 100 Wound Drainage Amount: None Wound Drainage Odor: None/Absent Tissue Surrounding Wound: Intact Wound General Appearance: Reddened, Open to air Wound Comment #1 left breast fold intertrigo rash. #2 right breast fold intertrigo rash. Recommendation. - Local wound care as ordered. - Keep site clean and dry. - Turn and reposition. -Assess and notify MD for any changes of condition. JUAN PABLO LINTON Jul 24, 2016 11:13
--- NOTE | 2016-07-24 12:47 | Pulmonology Progress Note ---
Assessment/Plan Problems: (1) Acute encephalopathy (2) ICD (implantable cardioverter-defibrillator) in place (3) ESRD (end stage renal disease) on dialysis (4) Hypoxia (5) Hyperkalemia Assessment/Plan all noted cardio and neuro saw the patient HD prn f/u labs bp better controlled heart rate controlled social servie to assess home safet pt/ot dc in am, probably home if safe. Subjective ROS Limited/Unobtainable: No Interval Events: improivng Allergies: Coded Allergies: No Known Allergies (Unverified , 07/22/16) Objective Last 24 Hour Vital Signs Date Time Temp Pulse Resp B/P Pulse Ox O2 Delivery O2 Flow Rate FiO2 07/24/16 12:00 89 07/24/16 11:30 97.9 90 18 113/63 95 Room Air 07/24/16 08:13 83 141/68 07/24/16 08:13 141/68 07/24/16 08:00 91 07/24/16 07:55 97.7 83 18 141/68 96 Room Air 07/24/16 06:10 129/63 07/24/16 04:00 98.2 18 129/63 83 Room Air 07/24/16 04:00 86 07/24/16 00:00 98.4 54 20 135/67 96 Room Air 07/24/16 00:00 80 07/23/16 23:09 90 133/67 07/23/16 22:00 108/63 07/23/16 21:56 97.4 120 20 123/69 96 Room Air 07/23/16 21:54 Room Air 07/23/16 20:00 96 07/23/16 20:00 97.7 108 16 101/63 98 Room Air 07/23/16 18:15 Room Air 07/23/16 18:15 98.1 100 20 122/67 96 Room Air 07/23/16 16:05 98.1 95 20 120/62 96 Room Air 07/23/16 16:00 99 07/23/16 15:43 142/78 07/23/16 14:28 129/72 Intake and Output 07/23/16 07/24/16 19:00 07:00 Intake Total 720 ml 120 ml Output Total 1600 ml Balance 720 ml -1480 ml Intake Oral 720 ml 120 ml Output Urine Total 100 ml Hemodialysis UF 1500 ml # Bowel Movements 1 General Appearance: WD/WN HEENT: normocephalic, atraumatic Respiratory/Chest: chest wall non-tender, lungs clear Cardiovascular: normal peripheral pulses, normal rate Abdomen: normal bowel sounds, soft, non tender Genitourinary: normal external genitalia Extremities: no cyanosis Skin: no rash, no lesions Neurologic/Psychiatric: senior program planner II-XII grossly normal, no motor/sensory deficits Microbiology Date/Time Source Procedure Growth Status 07/22/16 10:50 Blood Blood Culture - Preliminary NO GROWTH AFTER 24 HOURS Resulted 07/22/16 10:35 Blood Blood Culture - Preliminary NO GROWTH AFTER 24 HOURS Resulted 07/22/16 11:33 Nasal Nares MRSA Culture - Final Staphylococcus Aureus - Mrsa Complete 07/22/16 11:33 Rectum VRE Culture - Final NO VANCOMYCIN RESISTANT ENTEROCOCCUS ... Complete Laboratory Tests 07/24/16 05:10: White Blood Count 9.8, Red Blood Count 4.60, Hemoglobin 14.9, Hematocrit 48.0H, Mean Corpuscular Volume 104H, Mean Corpuscular Hemoglobin 32.5H, Mean Corpuscular Hemoglobin Concent 31.1L, Red Cell Distribution Width 14.6, Platelet Count 192, Mean Platelet Volume 9.9, Neutrophils (%) (Auto) 55.9, Lymphocytes (%) (Auto) 25.3, Monocytes (%) (Auto) 15.0H, Eosinophils (%) (Auto) 2.6, Basophils (%) (Auto) 1.1, Sodium Level 140, Potassium Level 3.8, Chloride Level 89L, Carbon Dioxide Level 32H, Anion Gap 19H, Blood Urea Nitrogen 38#H, Creatinine 5.7H, Estimat Glomerular Filtration Rate , Glucose Level 128H, Calcium Level 9.7, Phosphorus Level 4.7, Troponin I < 0.30 Current Medications Medications (Trade) Dose Ordered Sig/Sherry Route PRN Reason Start Time Stop Time Status Last Admin Dose Admin Acetaminophen (Tylenol) 650 mg Q4H PRN ORAL fever 07/22/16 14:30 08/21/16 14:29 Albuterol/ Ipratropium 3 ml 3 ml Q6HRT PRN HHN dyspnea 07/22/16 14:30 07/27/16 14:29 Apixaban (Eliquis) 5 mg Q12H ORAL 07/23/16 21:00 08/22/16 20:59 07/24/16 08:13 Atorvastatin Calcium (Lipitor) 40 mg BEDTIME ORAL 07/23/16 21:00 08/22/16 20:59 07/23/16 22:01 Benazepril HCl (Lotensin) 40 mg DAILY ORAL 07/23/16 12:00 08/22/16 11:59 07/24/16 08:13 Clonidine HCl (Catapres) 0.1 mg Q4H PRN ORAL For High Blood Pressure 07/22/16 14:30 08/21/16 14:29 07/23/16 01:38 Clopidogrel Bisulfate (Plavix) 75 mg DAILY ORAL 07/23/16 13:00 08/22/16 12:59 07/24/16 08:13 Dextrose (Dextrose 50%) STAT PRN IV Hypoglycemia 07/22/16 14:30 08/21/16 14:29 Hydralazine HCl (Apresoline) 50 mg Q8HR ORAL 07/23/16 14:00 08/22/16 13:59 07/24/16 06:10 Insulin Aspart (NovoLOG) BEFORE MEALS AND HS SUBQ 07/22/16 16:30 08/21/16 16:29 07/24/16 12:23 Metoprolol Tartrate (Lopressor) 25 mg Q12HR ORAL 07/23/16 12:00 08/22/16 11:59 07/24/16 08:13 Morphine Sulfate (Morphine Sulfate) 1 mg EVERY 4 HOURS PRN IVP For Pain 07/22/16 14:30 07/29/16 14:29 Nystatin (Nystop Powder) 1 applic THREE TIMES A DAY TOPIC 07/24/16 13:00 08/23/16 12:59 Ondansetron HCl (Zofran) 4 mg Q6H PRN IVP Nausea & Vomiting 07/22/16 14:30 08/21/16 14:29 07/24/16 08:14 Pantoprazole (Protonix) 40 mg BIAC ORAL 07/24/16 09:30 08/23/16 09:29 07/24/16 10:28 Polyethylene Glycol (Miralax) 17 gm HSPRN PRN ORAL Constipation 07/22/16 14:30 08/21/16 14:29 Sodium Chloride (Sodium Chloride 1000ml bag) 1,000 ml @ 500 mls/hr Q2H PRN IVLG sbp<90 during hd 07/23/16 04:00 08/22/16 03:59 Vitamin B Complex/ Vit C/Folic Acid (Nephrovite) 1 tab DAILY ORAL 07/23/16 15:30 08/22/16 15:29 07/24/16 08:13 Zolpidem Tartrate (Ambien) 5 mg HSPRN PRN ORAL Insomnia 07/22/16 14:30 08/21/16 14:29 MISSY BARRY Jul 24, 2016 12:47
[2016-07-24] MEDS: Nystatin Powder 100,000 units/gm 15gm TOPIC SCH ×2 (13:56→18:58)
[2016-07-24] MEDS: Morphine Sulfate 2mg/ml Inj IVP PRN (14:05)
--- NOTE | 2016-07-24 15:16 | Cardiology Report ---
APPROVED REPORT EXAM: Two-dimensional and M-mode echocardiogram with Doppler and color Doppler. INDICATION Chest Pain M-Mode DIMENSIONS IVSd1.7 (0.7-1.1cm)Left Atrium (MM)3.6 (1.6-4.0cm) LVDd4.0 (3.5-5.6cm)Aortic Root2.8 (2.0-3.7cm) PWd1.6 (0.7-1.1cm)Aortic Cusp Exc.1.6 (1.5-2.0cm) LVDs2.8 (2.5-4.0cm) PWs2.3 cm Technically difficult study due to poor acoustic windows. Normal left ventricular chamber size, systolic function and wall motion. Left ventricular ejection fraction estimated to be 55-60 %. Mild left ventricular hypertrophy on 2-D. Anterior Echo-free space, may be due to pericardial fat or effusion. Mild bi-atrial enlargement. Right ventricular chamber is within normal size. Mild focal aortic valve sclerosis with adequate cusp excursion Mild thickened mitral valve leaflets with normal excursion. Mild mitral annulus and aortic root calcification. Pulmonic valve not well visualized. Normal tricuspid valve structure. IVC not obtainable. A color flow and spectral Doppler study was performed and revealed: Trace aortic regurgitation. Trace mitral regurgitation. Can not determine left ventricular diastolic function by mitral diastolic velocities due to atrial fibrillation. Trace to mild tricuspid regurgitation. Tricuspid systolic velocities suggests peak right ventricular systolic pressure of 32 mmHg Moderate pulmonic regurgitation present.
--- NOTE | 2016-07-24 15:30 | Cardiology Report ---
APPROVED REPORT EKG Measurement Heart [id number] Atrial flutter with 3:1 AV conduction Pulmonary disease pattern Incomplete right bundle branch block Left anterior fascicular block Marked ST abnormality, possible inferior subendocardial injury Abnormal ECG
--- NOTE | 2016-07-24 15:51 | Cardiology Report ---
APPROVED REPORT EKG Measurement Heart [id number] Atrial flutter with variable AV block with occasional Incomplete right bundle branch block Prolonged QT Abnormal ECG
--- NOTE | 2016-07-24 19:42 | Cardiology Progress Note ---
Assessment/Plan Assessment/Plan encephalopathy possibly hypertensive esrd on dialysis htn dm hyperlipidemia icd implantation with subsequent sbe require replacement in 2014 afib / flutter reported cm d/w pmd dr blake [phone] on 07/23/2016 telel noted / reviewed echo noted ef ok anti hypertensive meds dialysis repeat cardiac enzyme neg ekg per rev atrial tachy variable block Subjective Cardiovascular: Denies: chest pain Respiratory: Denies: shortness of breath Gastrointestinal/Abdominal: Denies: abdominal pain Genitourinary: Denies: burning Objective Last 24 Hour Vital Signs Date Time Temp Pulse Resp B/P Pulse Ox O2 Delivery O2 Flow Rate FiO2 07/24/16 16:00 100 07/24/16 15:25 97.1 52 18 103/49 96 Room Air 07/24/16 13:50 113/63 07/24/16 12:00 89 07/24/16 11:30 97.9 90 18 113/63 95 Room Air 07/24/16 08:13 83 141/68 07/24/16 08:13 141/68 07/24/16 08:00 91 07/24/16 07:55 97.7 83 18 141/68 96 Room Air 07/24/16 06:10 129/63 07/24/16 04:00 98.2 18 129/63 83 Room Air 07/24/16 04:00 86 07/24/16 00:00 98.4 54 20 135/67 96 Room Air 07/24/16 00:00 80 07/23/16 23:09 90 133/67 07/23/16 22:00 108/63 07/23/16 21:56 97.4 120 20 123/69 96 Room Air 07/23/16 21:54 Room Air 07/23/16 20:00 96 07/23/16 20:00 97.7 108 16 101/63 98 Room Air General Appearance: no apparent distress, alert, obese Neck: no JVD Cardiovascular: normal rate, regular rhythm Respiratory/Chest: lungs clear, normal breath sounds Abdomen: normal bowel sounds, non tender, soft Extremities: no swelling Intake and Output 07/23/16 07/24/16 19:00 07:00 Intake Total 720 ml 120 ml Output Total 1600 ml Balance 720 ml -1480 ml Intake Oral 720 ml 120 ml Output Urine Total 100 ml Hemodialysis UF 1500 ml # Bowel Movements 1 Laboratory Tests Test 07/24/16 05:10 White Blood Count 9.8 K/UL (4.8-10.8) Red Blood Count 4.60 M/UL (4.20-5.40) Hemoglobin 14.9 G/DL (12.0-16.0) Hematocrit 48.0 % (37.0-47.0) H Mean Corpuscular Volume 104 FL (80-99) H Mean Corpuscular Hemoglobin 32.5 PG (27.0-31.0) H Mean Corpuscular Hemoglobin Concent 31.1 G/DL (32.0-36.0) L Red Cell Distribution Width 14.6 % (11.6-14.8) Platelet Count 192 K/UL (150-450) Mean Platelet Volume 9.9 FL (6.5-10.1) Neutrophils (%) (Auto) 55.9 % (45.0-75.0) Lymphocytes (%) (Auto) 25.3 % (20.0-45.0) Monocytes (%) (Auto) 15.0 % (1.0-10.0) H Eosinophils (%) (Auto) 2.6 % (0.0-3.0) Basophils (%) (Auto) 1.1 % (0.0-2.0) Sodium Level 140 mEQ/L (135-145) Potassium Level 3.8 mEQ/L (3.4-4.9) Chloride Level 89 mEQ/L (98-107) L Carbon Dioxide Level 32 mEQ/L (20-30) H Anion Gap 19 (5-15) H Blood Urea Nitrogen 38 mg/dL (7-23) #H Creatinine 5.7 mg/dL (0.5-0.9) H Estimat Glomerular Filtration Rate mL/min (>60) Glucose Level 128 mg/dL (74-106) H Calcium Level 9.7 mg/dL (8.6-10.2) Phosphorus Level 4.7 mg/dL (2.5-4.8) Troponin I < 0.30 ng/mL (<=0.30) Microbiology Date/Time Source Procedure Growth Status 07/22/16 10:50 Blood Blood Culture - Preliminary NO GROWTH AFTER 24 HOURS Resulted 07/22/16 10:35 Blood Blood Culture - Preliminary NO GROWTH AFTER 24 HOURS Resulted 07/22/16 11:33 Nasal Nares MRSA Culture - Final Staphylococcus Aureus - Mrsa Complete 07/22/16 11:33 Rectum VRE Culture - Final NO VANCOMYCIN RESISTANT ENTEROCOCCUS ... Complete RD CLARK Jul 24, 2016 19:42
[2016-07-25 04:00] VITALS: BP 104/51
[2016-07-25] MEDS: HydrALAZINE 50mg tab ORAL SCH ×2 (05:42→14:26)
[2016-07-25] MEDS: NovoLOG Insulin Flexpen SUBQ SCH ×2 (06:17→12:03)
[2016-07-25 07:57] LABS: BASOPHILS % (AUTO) 1.3 % (0.0-2.0); EOSINOPHILS % (AUTO) 1.8 % (0.0-3.0); LYMPHOCYTES % (AUTO) 24.9 % (20.0-45.0); MEAN CORPUSCULAR HEMOGLOBIN 32.5 PG (27.0-31.0); MEAN CORPUSCULAR HGB CONC 31.2 G/DL (32.0-36.0); MEAN CORPUSCULAR VOLUME 104 FL (80-99); MEAN PLATELET VOLUME 10.6 FL (6.5-10.1); MONOCYTES % (AUTO) 14.9 % (1.0-10.0); NEUTROPHILS % (AUTO) 57.1 % (45.0-75.0); PLATELET COUNT 188 K/UL (150-450); RED BLOOD COUNT 4.59 M/UL (4.20-5.40); RED CELL DISTRIBUTION WIDTH 14.1 % (11.6-14.8); WHITE BLOOD COUNT 10.2 K/UL (4.8-10.8)
[2016-07-25 08:00] VITALS: BP 100/62
[2016-07-25] MEDS: Metoprolol 25mg tab ORAL SCH (08:24)
[2016-07-25] MEDS: Nystatin Powder 100,000 units/gm 15gm TOPIC SCH ×2 (08:24→14:20)
[2016-07-25] MEDS: Morphine Sulfate 2mg/ml Inj IVP PRN (08:24)
[2016-07-25 08:25] LABS: ALANINE AMINOTRANSFERASE 6 U/L (3-33); ALBUMIN/GLOBULIN RATIO 1.1 (1.0-2.7); ANION GAP 18 (5-15); ASPARTATE AMINO TRANSFERASE 13 U/L (5-40); CALCIUM 9.8 mg/dL (8.6-10.2); CARBON DIOXIDE 30 mEQ/L (20-30); CHLORIDE 90 mEQ/L (98-107); CREATININE 8.6 mg/dL (0.5-0.9); CRP QUANT 0.9 mg/dL (< 0.5); HEMOLYSIS 4; MAGNESIUM 2.2 mg/dL (1.7-2.5); PHOSPHORUS 7.8 mg/dL (2.5-4.8); POTASSIUM 4.3 mEQ/L (3.4-4.9); SODIUM 138 mEQ/L (135-145); TOTAL PROTEIN 7.6 g/dL (6.6-8.7); URIC ACID 7.7 mg/dL (3.0-7.5)
[2016-07-25] MEDS: Nephrovite tab ORAL SCH (08:26)
[2016-07-25] MEDS: Eliquis 2.5mg tablet ORAL SCH (08:27)
[2016-07-25 08:54] LABS: HEMOGLOBIN A1C 5.6 % (< 6.0)
[2016-07-25 11:15] VITALS: BP 94/53
[2016-07-25] MEDS ORDERED: PLAVIX75 MG ORAL (12:05)
[2016-07-25] MEDS ORDERED: BENAZEPRIL HCL40 MG ORAL (12:05)
[2016-07-25] MEDS ORDERED: LOPRESSOR25 M1 ORAL (12:05)
[2016-07-25] MEDS ORDERED: APRESOLINE50 MG ORAL (12:05)
[2016-07-25] MEDS ORDERED: ELIQUIS2.5 MG ORAL (12:05)
[2016-07-25 14:26] VITALS: BP 119/64
--- NOTE | 2016-07-25 15:29 | General Progress Note ---
Assessment/Plan Status: stable - from renal stand Assessment/Plan status: This is a 71-year-old female with history of end-stage renal disease, on hemodialysis every Friday, Friday, and Friday. She was admitted with change in mental status. The patient has diabetes and hypertension and atrial fibrillation status post implantable cardioverter-defibrillator placement. Plan: Dialysed today adjust BP meds- Add Phos binders Gastric support Subjective ROS Limited/Unobtainable: No Constitutional: Reports: malaise Allergies: Coded Allergies: No Known Allergies (Unverified , 07/22/16) Objective Last 24 Hour Vital Signs Date Time Temp Pulse Resp B/P Pulse Ox O2 Delivery O2 Flow Rate FiO2 07/25/16 14:26 119/64 07/25/16 12:00 88 07/25/16 11:15 96.3 79 18 94/53 96 Room Air 07/25/16 11:15 Room Air 07/25/16 08:54 96.3 07/25/16 08:25 100/62 07/25/16 08:24 82 100/62 07/25/16 08:10 Room Air 07/25/16 08:00 84 07/25/16 08:00 96.4 82 18 100/62 97 Room Air 07/25/16 05:42 104/60 07/25/16 04:00 98.8 80 18 104/51 98 Room Air 07/25/16 04:00 86 07/25/16 00:00 72 07/24/16 23:55 97.8 92 18 116/66 91 Room Air 07/24/16 21:36 119/69 07/24/16 21:35 87 119/69 07/24/16 20:00 97.7 93 18 119/69 92 Room Air 07/24/16 20:00 87 07/24/16 16:00 100 07/24/16 15:25 97.1 52 18 103/49 96 Room Air Intake and Output 07/24/16 07/25/16 19:00 07:00 Intake Total 500 ml 220 ml Output Total 50 ml Balance 450 ml 220 ml Intake Oral 500 ml 220 ml Output Urine Total 50 ml # Voids 1 # Bowel Movements 2 Laboratory Tests 07/25/16 07:30: White Blood Count 10.2, Red Blood Count 4.59, Hemoglobin 14.9, Hematocrit 47.8H , Mean Corpuscular Volume 104H, Mean Corpuscular Hemoglobin 32.5H, Mean Corpuscular Hemoglobin Concent 31.2L, Red Cell Distribution Width 14.1, Platelet Count 188, Mean Platelet Volume 10.6H, Neutrophils (%) (Auto) 57.1, Lymphocytes (%) (Auto) 24.9, Monocytes (%) (Auto) 14.9H, Eosinophils (%) (Auto) 1.8, Basophils (%) (Auto) 1.3, Sodium Level 138, Potassium Level 4.3, Chloride Level 90L, Carbon Dioxide Level 30, Anion Gap 18H, Blood Urea Nitrogen 57H, Creatinine 8.6#H, Estimat Glomerular Filtration Rate , Glucose Level 150H, Hemoglobin A1c 5.6, Uric Acid 7.7H, Calcium Level 9.8, Phosphorus Level 7.8H, Magnesium Level 2.2, Total Bilirubin 0.8, Gamma Glutamyl Transpeptidase 39H, Aspartate Amino Transf (AST/SGOT) 13, Alanine Aminotransferase (ALT/SGPT) 6, Alkaline Phosphatase 69, C-Reactive Protein, Quantitative 0.9H, Pro-B-Type Natriuretic Peptide 84291F, Total Protein 7.6, Albumin 4.0, Globulin 3.6, Albumin/Globulin Ratio 1.1 Height (Feet): 5 Height (Inches): 4.00 Weight (Pounds): 170 General Appearance: no apparent distress Respiratory/Chest: decreased breath sounds Objective other PE not changed AUBREY SWEENEY Jul 25, 2016 15:29
[2016-07-25] MEDS ORDERED: HydrALAZINE 50mg tab ORAL SCH (22:00)
[2016-07-26] MEDS ORDERED: Benazepril 10mg tab ORAL SCH (09:00)
--- NOTE | 2016-07-26 10:49 | Discharge Summary ---
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
--- NOTE | 2016-07-27 00:38 | Discharge Summary 2 SIG ---
DATE OF ADMISSION: 07/22/2016 DATE OF DISCHARGE: 07/25/2016 CONSULTANTS: 1. Marcos Pedroza M.D. 2. Checo Santiago M.D. BRIEF HOSPITAL COURSE: The patient is a 71-year-old female with history of end-stage renal failure, on hemodialysis and pacemaker was brought in by paramedics for altered level of consciousness. The patient had a scheduled dialysis, family members called paramedics. The patient was brought to [facility] for further evaluation. At ED, CT of the head showed no bleed and no mass. Chest x-ray showed no evidence of acute cardiopulmonary disease with a pacemaker on the right chest wall and a left chest dialysis access. She was admitted for further workup. Dr. Pedroza was consulted for inpatient hemodialysis. She was also seen by Dr. Santiago. Paramedics report showed elevated blood pressure in the 220s systolic. Case was discussed with the patient's PMD, Dr. Chong. She was resumed on her antihypertensive medications. Echocardiogram done showed left ventricular ejection fraction of 55% to 60%. Cardiac enzymes have been negative. She was also given phosphate binders and gastric support. Blood pressure improved and the patient was discharged home with home health. FINAL DIAGNOSES: 1. Acute metabolic encephalopathy possibly secondary to hypertension. 2. Hypertensive urgency. 3. End-stage renal disease, on hemodialysis. 4. Diabetes mellitus. 5. Hyperlipidemia. 6. Implantable cardioverter-defibrillator implantation. 7. Atrial fibrillation/flutter. 8. Cardiomyopathy. 9. Hyperkalemia. 10. Bilateral breast intertrigo rash present on admission. Nakul Mac M.D. I have been assigned to dictate discharge summary on this account and I was not involved in the patient's management. Jordana Emerson N.P. DR: MARY JOB#: [id number] CC: MARY
== END 2016-07-25 16:20 | disposition home health service (06) | DRG 77 ==
LOC: EDBD 10:31 → EMR 10:40 → 2E 13:16 → EDBEDREQ 15:37
PROC: 5A1D00Z (ICD-10-PCS; principal; 2016-07-25)
DX: I67.4 Hypertensive encephalopathy (principal); N18.6 End stage renal disease; I42.9 Cardiomyopathy, unspecified; I12.0 Hypertensive chronic kidney disease with stage 5 chronic kidney disease or end stage renal disease; I48.92 Unspecified atrial flutter; I16.0 Hypertensive urgency; E87.5 Hyperkalemia; E11.9 Type 2 diabetes mellitus without complications; Z99.2 Dependence on renal dialysis; R09.02 Hypoxemia; Z95.810 Presence of automatic (implantable) cardiac defibrillator; E78.5 Hyperlipidemia, unspecified; L30.4 Erythema intertrigo; I48.91 Unspecified atrial fibrillation; Z79.4 Long term (current) use of insulin; Z87.891 Personal history of nicotine dependence; E66.01 Morbid (severe) obesity due to excess calories; Z68.29 Body mass index [BMI] 29.0-29.9, adult
CPT/HCPCS: 36415; 36600; 70450; 71010; 80048; 80053; 80061; 81003; 82550; 82803; 82962; 82977; 83036; 83605; 83690; 83735; 83880; 84100; 84443; 84484; 84550; 85025; 85610; 85730; 86140; 87040; 87081; 93005; 93306; J1815; J2405

== ENCOUNTER 2016-07-29 12:04 | Inpatient (IN) | payer MEDICARE, OTHER ==
[~2016-07-29] VITALS: Ht 154.9 cm; Wt 72.6 kg
[~2016-07-29 12:04] MED LIST changes: +APRESOLINE50 MG ORAL; +BENAZEPRIL HCL40 MG ORAL; +ELIQUIS2.5 MG ORAL; +LOPRESSOR25 M1 ORAL; +PLAVIX75 MG ORAL
[2016-07-29 12:12] VITALS: BP 116/84
[2016-07-29] MEDS ORDERED: Diltiazem 25mg/5ml IV ONE ×2 (12:30→14:30)
[2016-07-29 12:39] VITALS: BP 82/26
[2016-07-29 12:52] LABS: BASOPHILS % (AUTO) 1.5 % (0.0-2.0); EOSINOPHILS % (AUTO) 2.6 % (0.0-3.0); LYMPHOCYTES % (AUTO) 16.9 % (20.0-45.0); MEAN CORPUSCULAR HEMOGLOBIN 32.8 PG (27.0-31.0); MEAN CORPUSCULAR HGB CONC 30.8 G/DL (32.0-36.0); MEAN CORPUSCULAR VOLUME 107 FL (80-99); MEAN PLATELET VOLUME 11.6 FL (6.5-10.1); MONOCYTES % (AUTO) 10.7 % (1.0-10.0); NEUTROPHILS % (AUTO) 68.3 % (45.0-75.0); PLATELET COUNT 168 K/UL (150-450); RED BLOOD COUNT 3.84 M/UL (4.20-5.40); RED CELL DISTRIBUTION WIDTH 15.6 % (11.6-14.8)
[2016-07-29 12:59] LABS: ALANINE AMINOTRANSFERASE 8 U/L (3-33); ANION GAP 20 (5-15); ASPARTATE AMINO TRANSFERASE 17 U/L (5-40); CALCIUM 9.3 mg/dL (8.6-10.2); CARBON DIOXIDE 28 mEQ/L (20-30); CHLORIDE 92 mEQ/L (98-107); CREATININE 7.3 mg/dL (0.5-0.9); HEMOLYSIS 18; POTASSIUM 3.7 mEQ/L (3.4-4.9); SODIUM 140 mEQ/L (135-145); TOTAL PROTEIN 7.7 g/dL (6.6-8.7)
[2016-07-29 13:02] LABS: TROPONIN I 0.32 ng/mL (<=0.30)
[2016-07-29 13:10] LABS: CKMB 3.2 ng/mL (< 3.8)
[2016-07-29] MEDS ORDERED: Heparin 5000 units/ml inj IV ONE (13:15)
[2016-07-29] MEDS ORDERED: Heparin 25,000u/D5W 500ml 500 ML IV SCH ×2 (13:15→18:30)
[2016-07-29 13:21] LABS: BILIRUBIN,DIRECT 0.4 mg/dL (0.1-0.3)
[2016-07-29 13:48] VITALS: BP 105/70
--- NOTE | 2016-07-29 14:48 | Emergency Room Report ---
History of Present Illness General Chief Complaint: Chest Pain Source: Patient, EMS Present Illness HPI Patient is a 71-year-old female who presented after increased chest tightness. Patient had onset of symptoms during dialysis. Patient had recently been hospitalized for altered mental status. Patient had unknown length of time of dialysis prior to the chest pain onset. The patient prior history of atrial flutter with variable block. The patient was noted to have a some chest pain which was somewhat improved with nitroglycerin. The patient was given aspirin by EMS. Allergies: Coded Allergies: No Known Allergies (Unverified , 07/22/16) Patient History Past Medical History: see triage record, HTN, dialysis Last Menstrual Period: na Reviewed Nursing Documentation: PMH: Agreed, PSxH: Agreed Nursing Documentation-PMH Hx Cardiac Problems: Yes Hx Hypertension: Yes Hx Pacemaker: Yes Hx Diabetes: Yes Hx Cancer: No Hx Gastrointestinal Problems: No Hx Dialysis: Yes - M-W-F Hx Neurological Problems: No Review of Systems All Other Systems: negative except mentioned in HPI Physical Exam Vital Signs Date Time Temp Pulse Resp B/P Pulse Ox O2 Delivery O2 Flow Rate FiO2 07/29/16 11:56 98.2 140 20 116/84 100 Nasal Cannula 2.0 Sp02 EP Interpretation: reviewed, normal General Appearance: normal inspection, well appearing, alert, GCS 15, mild distress, obese Head: atraumatic Eyes: bilateral eye other - left eye blindess ENT: normal ENT inspection, hearing grossly normal, normal voice Neck: normal inspection, full range of motion, supple, no bony tend Respiratory: normal inspection, lungs clear, normal breath sounds, no respiratory distress, no retraction, no wheezing Cardiovascular #1: regular rate, rhythm, edema - trace edema Gastrointestinal: normal inspection, normal bowel sounds, non tender, soft, no guarding, no hernia Genitourinary: no CVA tenderness Musculoskeletal: normal inspection, back normal, normal range of motion Neurologic: normal inspection, alert, responsive, speech normal Psychiatric: normal inspection, judgement/insight normal, mood/affect normal Skin: normal inspection, normal color, no rash Medical Decision Making Diagnostic Impression: Primary Impression: Chest pain Additional Impressions: Atrial flutter NSTEMI (non-ST elevated myocardial infarction) ER Course Patient presented for chest pain. Differential diagnosis included but was not limited to acute coronary syndrome, pulmonary embolism, pneumonia, aortic dissection, shingles, pneumothorax, aortic dissection, esophageal rupture, pericarditis. Because of complexity of patient's case laboratory testing and imaging studies were ordered. EKG interpreted by me showed atrial flutter with 2-1 block. Patient was given IV diltiazem with improvement in heart rate. Patient was subsequently given normal saline for mild hypotension. The patient was given additional dose of diltiazem. Laboratory testing showed evidence of troponin elevation. Dr. Santiago was contacted for inpatient cardiology consult. Dr. Mac was contacted for inpatient management due to complexity of medical condition. Labs Test 07/29/16 12:10 White Blood Count 14.0 K/UL (4.8-10.8) Red Blood Count 3.84 M/UL (4.20-5.40) Hemoglobin 12.6 G/DL (12.0-16.0) Hematocrit 40.9 % (37.0-47.0) Mean Corpuscular Volume 107 FL (80-99) Mean Corpuscular Hemoglobin 32.8 PG (27.0-31.0) Mean Corpuscular Hemoglobin Concent 30.8 G/DL (32.0-36.0) Red Cell Distribution Width 15.6 % (11.6-14.8) Platelet Count 168 K/UL (150-450) Mean Platelet Volume 11.6 FL (6.5-10.1) Neutrophils (%) (Auto) 68.3 % (45.0-75.0) Lymphocytes (%) (Auto) 16.9 % (20.0-45.0) Monocytes (%) (Auto) 10.7 % (1.0-10.0) Eosinophils (%) (Auto) 2.6 % (0.0-3.0) Basophils (%) (Auto) 1.5 % (0.0-2.0) Activated Partial Thromboplast Time 24 SEC (23-33) Sodium Level 140 mEQ/L (135-145) Potassium Level 3.7 mEQ/L (3.4-4.9) Chloride Level 92 mEQ/L (98-107) Carbon Dioxide Level 28 mEQ/L (20-30) Anion Gap 20 (5-15) Blood Urea Nitrogen 60 mg/dL (7-23) Creatinine 7.3 mg/dL (0.5-0.9) Estimat Glomerular Filtration Rate mL/min (>60) Glucose Level 127 mg/dL (74-106) Calcium Level 9.3 mg/dL (8.6-10.2) Total Bilirubin 1.2 mg/dL (0.0-1.2) Direct Bilirubin 0.4 mg/dL (0.1-0.3) Aspartate Amino Transf (AST/SGOT) 17 U/L (5-40) Alanine Aminotransferase (ALT/SGPT) 8 U/L (3-33) Alkaline Phosphatase 77 U/L (35-104) Total Creatine Kinase 85 U/L (26-140) Creatine Kinase MB 3.2 ng/mL (< 3.8) Creatine Kinase MB Relative Index 3.7 Troponin I 0.32 ng/mL (<=0.30) Pro-B-Type Natriuretic Peptide 6333 pg/mL (0-125) Total Protein 7.7 g/dL (6.6-8.7) Albumin 3.9 g/dL (3.5-5.2) Globulin 3.8 g/dL Albumin/Globulin Ratio 1.0 (1.0-2.7) EKG Diagnostic Results Rate: tachycardiac ST Segments: other - lateral st depression Chest X-Ray Diagnostic Results EP Interpretation: Yes Findings: no effusion, no pneumothorax, no acute cardiopulmonary disease Number of Views: 1 Last Vital Signs Date Time Temp Pulse Resp B/P Pulse Ox O2 Delivery O2 Flow Rate FiO2 07/29/16 13:48 112 20 105/70 97 Room Air 07/29/16 12:12 2.0 07/29/16 11:56 98.2 Status: unchanged Disposition: ADMITTED INPATIENT Condition: Serious Referrals: NON PHYSICIAN (PCP) Ryan Billy Jul 29, 2016 14:48
[2016-07-29] MEDS ORDERED: Enalaprilat 2.5mg/2ml Inj IV PRN (15:30)
[2016-07-29] MEDS ORDERED: Miralax 17gm pkt ORAL PRN (15:30)
[2016-07-29] MEDS ORDERED: Eliquis 2.5mg tablet ORAL SCH (15:30)
[2016-07-29] MEDS ORDERED: DuoNeb 0.5-3(2.5)mg/3ml neb HHN PRN (15:30)
[2016-07-29] MEDS ORDERED: Morphine Sulfate 2mg/ml Inj IVP PRN (15:30)
[2016-07-29] MEDS ORDERED: Diltiazem 25mg/5ml IV PRN (15:30)
[2016-07-29] MEDS ORDERED: Nitroglycerin Subl 0.4mg tab (Bottle Of 25) SL PRN (15:30)
[2016-07-29 16:02] VITALS: BP 141/65
--- NOTE | 2016-07-29 16:19 | Diagnostic Imaging Report ---
Indication: SOB, chest pain Technique: One view of the chest Comparison: 2016 Findings: The heart is enlarged. Lungs and pleural spaces are clear. Right chest AICD is again demonstrated . Left subclavian venous stent is again demonstrated Findings are unchanged Impression: No acute process Cardiomegaly
[2016-07-29 19:45] LABS: TROPONIN I < 0.30 ng/mL (<=0.30)
[2016-07-29 20:00] VITALS: BP 135/65
--- NOTE | 2016-07-29 20:21 | Cardiology Progress Note ---
Assessment/Plan Assessment/Plan perm afib tachy icd hs obeity dc benzepril starty dilt adn coreg dc heparin resum eliquis serial enzyme [id number] Objective Last 24 Hour Vital Signs Date Time Temp Pulse Resp B/P Pulse Ox O2 Delivery O2 Flow Rate FiO2 07/29/16 16:02 97.0 99 18 141/65 98 Room Air 07/29/16 16:00 94 07/29/16 15:33 98.2 116 20 120/75 97 Room Air 07/29/16 15:03 119 103/51 07/29/16 13:48 112 20 105/70 97 Room Air 07/29/16 12:39 84 20 82/26 97 Room Air 07/29/16 12:34 128 127/103 07/29/16 12:12 20 116/84 100 Nasal Cannula 2.0 07/29/16 12:12 120 20 Nasal Cannula 2.0 07/29/16 11:56 98.2 140 20 116/84 100 Nasal Cannula 2.0 Laboratory Tests Test 07/29/16 12:10 07/29/16 17:32 White Blood Count 14.0 K/UL (4.8-10.8) H Red Blood Count 3.84 M/UL (4.20-5.40) L Hemoglobin 12.6 G/DL (12.0-16.0) Hematocrit 40.9 % (37.0-47.0) Mean Corpuscular Volume 107 FL (80-99) H Mean Corpuscular Hemoglobin 32.8 PG (27.0-31.0) H Mean Corpuscular Hemoglobin Concent 30.8 G/DL (32.0-36.0) L Red Cell Distribution Width 15.6 % (11.6-14.8) H Platelet Count 168 K/UL (150-450) Mean Platelet Volume 11.6 FL (6.5-10.1) H Neutrophils (%) (Auto) 68.3 % (45.0-75.0) Lymphocytes (%) (Auto) 16.9 % (20.0-45.0) L Monocytes (%) (Auto) 10.7 % (1.0-10.0) H Eosinophils (%) (Auto) 2.6 % (0.0-3.0) Basophils (%) (Auto) 1.5 % (0.0-2.0) Activated Partial Thromboplast Time 24 SEC (23-33) 82 SEC (23-33) H Sodium Level 140 mEQ/L (135-145) Potassium Level 3.7 mEQ/L (3.4-4.9) Chloride Level 92 mEQ/L (98-107) L Carbon Dioxide Level 28 mEQ/L (20-30) Anion Gap 20 (5-15) H Blood Urea Nitrogen 60 mg/dL (7-23) H Creatinine 7.3 mg/dL (0.5-0.9) H Estimat Glomerular Filtration Rate mL/min (>60) Glucose Level 127 mg/dL (74-106) H Calcium Level 9.3 mg/dL (8.6-10.2) Total Bilirubin 1.2 mg/dL (0.0-1.2) Direct Bilirubin 0.4 mg/dL (0.1-0.3) H Aspartate Amino Transf (AST/SGOT) 17 U/L (5-40) Alanine Aminotransferase (ALT/SGPT) 8 U/L (3-33) Alkaline Phosphatase 77 U/L (35-104) Total Creatine Kinase 85 U/L (26-140) Creatine Kinase MB 3.2 ng/mL (< 3.8) Creatine Kinase MB Relative Index 3.7 Troponin I 0.32 ng/mL (<=0.30) *H < 0.30 ng/mL (<=0.30) Pro-B-Type Natriuretic Peptide 6333 pg/mL (0-125) H Total Protein 7.7 g/dL (6.6-8.7) Albumin 3.9 g/dL (3.5-5.2) Globulin 3.8 g/dL Albumin/Globulin Ratio 1.0 (1.0-2.7) RD CLARK Jul 29, 2016 20:21
[2016-07-29] MEDS ORDERED: Metoprolol 25mg tab ORAL SCH (21:00)
[2016-07-29] MEDS ORDERED: Heparin 5000 units/ml inj SUBQ SCH (21:00)
[2016-07-29] MEDS: Carvedilol 6.25mg Tab ORAL SCH (21:41)
[2016-07-29] MEDS: Eliquis 2.5mg tablet ORAL SCH (21:42)
[2016-07-29] MEDS: NovoLOG Insulin Flexpen SUBQ SCH (21:46)
[2016-07-29] MEDS ORDERED: HydrALAZINE 50mg tab ORAL SCH (22:00)
--- NOTE | 2016-07-29 23:05 | History and Physical ---
History of Present Illness General Date patient seen: Jul 29, 2016 Reason for Hospitalization: Chest Pain Present Illness HPI 71-year-old female with hx of ESRF, on HD, CAD presented to ER with CC of chest tightness. Patient had onset of symptoms during dialysis. The patient prior history of atrial flutter with variable block. The patient was noted to have a some chest pain which was somewhat improved with nitroglycerin. She is admitted to telemetry for further evaluation. She is currently asymptomatic. Allergies: Coded Allergies: No Known Allergies (Unverified , 07/22/16) Medication History Scheduled Apixaban (Eliquis), 5 MG ORAL Q12H Benazepril Hcl* (Benazepril Hcl*), 40 MG ORAL DAILY Clopidogrel Bisulfate* (Plavix*), 75 MG ORAL DAILY Hydralazine HCl (Hydralazine HCl), 50 MG ORAL Q8HR Metoprolol Tartrate (Metoprolol Tartrate), 25 MG ORAL Q12HR Miscellaneous Medications Unable to Obtain Medications (Unable To Obtain Meds), (Reported) Patient History Healthcare decision maker Resuscitation status Full Code Advanced Directive on File Past Medical/Surgical History Past Medical/Surgical History: (1) NSTEMI (non-ST elevated myocardial infarction) (2) Atrial flutter (3) ICD (implantable cardioverter-defibrillator) in place (4) ESRF (end stage renal failure) Review of Systems All Other Systems: negative except mentioned in HPI Physical Exam General Appearance: WD/WN Lines, tubes and drains: peripheral HEENT: normocephalic, atraumatic Neck: non-tender, normal alignment Respiratory/Chest: chest wall non-tender, lungs clear Cardiovascular/Chest: normal peripheral pulses Abdomen: normal bowel sounds Genitourinary/Rectal: normal genital exam Extremities: normal range of motion 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 II-XII grossly normal Last 24 Hour Vital Signs Date Time Temp Pulse Resp B/P Pulse Ox O2 Delivery O2 Flow Rate FiO2 07/29/16 21:41 83 135/65 07/29/16 20:00 97.5 83 21 135/65 98 Room Air 07/29/16 16:02 97.0 99 18 141/65 98 Room Air 07/29/16 16:00 94 07/29/16 15:33 98.2 116 20 120/75 97 Room Air 07/29/16 15:03 119 103/51 07/29/16 13:48 112 20 105/70 97 Room Air 07/29/16 12:39 84 20 82/26 97 Room Air 07/29/16 12:34 128 127/103 07/29/16 12:12 20 116/84 100 Nasal Cannula 2.0 07/29/16 12:12 120 20 Nasal Cannula 2.0 07/29/16 11:56 98.2 140 20 116/84 100 Nasal Cannula 2.0 Laboratory Tests Test 07/29/16 12:10 07/29/16 17:32 White Blood Count 14.0 K/UL (4.8-10.8) H Red Blood Count 3.84 M/UL (4.20-5.40) L Hemoglobin 12.6 G/DL (12.0-16.0) Hematocrit 40.9 % (37.0-47.0) Mean Corpuscular Volume 107 FL (80-99) H Mean Corpuscular Hemoglobin 32.8 PG (27.0-31.0) H Mean Corpuscular Hemoglobin Concent 30.8 G/DL (32.0-36.0) L Red Cell Distribution Width 15.6 % (11.6-14.8) H Platelet Count 168 K/UL (150-450) Mean Platelet Volume 11.6 FL (6.5-10.1) H Neutrophils (%) (Auto) 68.3 % (45.0-75.0) Lymphocytes (%) (Auto) 16.9 % (20.0-45.0) L Monocytes (%) (Auto) 10.7 % (1.0-10.0) H Eosinophils (%) (Auto) 2.6 % (0.0-3.0) Basophils (%) (Auto) 1.5 % (0.0-2.0) Activated Partial Thromboplast Time 24 SEC (23-33) 82 SEC (23-33) H Sodium Level 140 mEQ/L (135-145) Potassium Level 3.7 mEQ/L (3.4-4.9) Chloride Level 92 mEQ/L (98-107) L Carbon Dioxide Level 28 mEQ/L (20-30) Anion Gap 20 (5-15) H Blood Urea Nitrogen 60 mg/dL (7-23) H Creatinine 7.3 mg/dL (0.5-0.9) H Estimat Glomerular Filtration Rate mL/min (>60) Glucose Level 127 mg/dL (74-106) H Calcium Level 9.3 mg/dL (8.6-10.2) Total Bilirubin 1.2 mg/dL (0.0-1.2) Direct Bilirubin 0.4 mg/dL (0.1-0.3) H Aspartate Amino Transf (AST/SGOT) 17 U/L (5-40) Alanine Aminotransferase (ALT/SGPT) 8 U/L (3-33) Alkaline Phosphatase 77 U/L (35-104) Total Creatine Kinase 85 U/L (26-140) Creatine Kinase MB 3.2 ng/mL (< 3.8) Creatine Kinase MB Relative Index 3.7 Troponin I 0.32 ng/mL (<=0.30) *H < 0.30 ng/mL (<=0.30) Pro-B-Type Natriuretic Peptide 6333 pg/mL (0-125) H Total Protein 7.7 g/dL (6.6-8.7) Albumin 3.9 g/dL (3.5-5.2) Globulin 3.8 g/dL Albumin/Globulin Ratio 1.0 (1.0-2.7) Height (Feet): 5 Height (Inches): 1.00 Weight (Pounds): 160 Medications Current Medications Medications (Trade) Dose Ordered Sig/Sherry Route PRN Reason Start Time Stop Time Status Last Admin Dose Admin Acetaminophen (Tylenol) 650 mg Q4H PRN ORAL FEVER 07/29/16 15:30 08/28/16 15:29 Albuterol/ Ipratropium (DuoNeb 0.5-3(2.5)mg/3ml) 3 ml Q4H PRN HHN Shortness of Breath 07/29/16 15:30 08/03/16 15:29 Apixaban (Eliquis) 5 mg Q12HR ORAL 07/29/16 21:00 08/28/16 20:59 07/29/16 21:42 Aspirin (ASA) 81 mg DAILY ORAL 07/30/16 09:00 08/29/16 08:59 Carvedilol (Coreg) 6.25 mg EVERY 12 HOURS ORAL 07/29/16 21:00 08/28/16 20:59 07/29/16 21:41 Dextrose (Dextrose 50%) STAT PRN IV Hypoglycemia 07/29/16 18:15 08/28/16 18:14 Diltiazem HCl (Cardizem) 10 mg Q1H PRN IV HR > 120 07/29/16 15:30 08/28/16 15:29 Diltiazem HCl (Cardizem) 30 mg EVERY 6 HOURS ORAL 07/30/16 00:00 08/29/16 00:00 Enalaprilat (Vasotec) 2.5 mg Q6H PRN IV sbp more than 160 07/29/16 15:30 08/28/16 15:29 Insulin Aspart (NovoLOG) BEFORE MEALS AND HS SUBQ 07/29/16 21:00 08/28/16 20:59 07/29/16 21:46 Morphine Sulfate (Morphine Sulfate) 2 mg Q4H PRN IVP severe Pain (Pain Scale 7-10) 07/29/16 15:30 08/05/16 15:29 Nitroglycerin (Ntg) 0.4 mg Q5MIN X 3 DOSES PRN SL Prn Chest Pain 07/29/16 15:30 08/28/16 15:29 Ondansetron HCl (Zofran) 4 mg Q6H PRN IVP Nausea & Vomiting 07/29/16 15:30 08/28/16 15:29 Pantoprazole (Protonix) 40 mg DAILY ORAL 07/30/16 09:00 08/29/16 08:59 Polyethylene Glycol (Miralax) 17 gm DAILYPRN PRN ORAL Constipation 07/29/16 15:30 08/28/16 15:29 Temazepam (Restoril) 15 mg HSPRN PRN ORAL Insomnia 07/29/16 15:30 08/05/16 15:29 Assessment/Plan Problem List: (1) NSTEMI (non-ST elevated myocardial infarction) ICD Codes: I21.4 - Non-ST elevation (NSTEMI) myocardial infarction SNOMED: 708954770 (2) Chest pain ICD Codes: R07.9 - Chest pain, unspecified SNOMED: 73860779 (3) ESRF (end stage renal failure) ICD Codes: N18.6 - End stage renal disease SNOMED: 75369487 (4) Atrial flutter ICD Codes: I48.92 - Unspecified atrial flutter SNOMED: 8337432 Assessment/Plan serial ekg, troponin echo cardio evaluation HD by nephrology MISSY BARRY Jul 29, 2016 23:05
[2016-07-30] VITALS: BP 121/61
[2016-07-30 04:00] VITALS: BP 150/86
--- NOTE | 2016-07-30 04:08 | Consultation ---
DATE OF CONSULTATION: 07/29/2016 CARDIOLOGY CONSULTATION CONSULTING PHYSICIAN: Checo Santiago M.D. REFERRING PHYSICIAN: Nakul Mac M.D. REASON FOR CONSULTATION: Atrial fibrillation and chest pain. HISTORY OF PRESENT ILLNESS: This is a 71-year-old female whose information is obtained from the patient directly as well as my review from the previous chart. The patient presented to the hospital because of developing chest pain while on dialysis. Pain started in the sternum, there is no radiation, no relieving or exacerbating factors identified by the patient, specifically there is no change with coughing or taking a deep breath or twisting or turning. She does not ambulate. Usually, she has had this pain once a month, this time because she was in the dialysis center, paramedics were summoned. She was at the present time . She does occasionally have PND. She has occasional shortness of breath on lying down. She has occasional dizziness on standing and palpitation. She was noted to be in atrial fibrillation with rapid ventricular response in excess of 150s when she presented to the emergency room was treated with medication. Because of persistent chest pain, the emergency room physician initially wanted to transfer her to another facility, however, apparently the pain improved and the patient was kept here. Her past medical history is extensive and has been delineated in my previous consultation, which I obtained from my discussion with the patient's primary care physician as well as review of the [facility] data. PAST MEDICAL HISTORY: Positive for history of congestive heart failure, atrial fibrillation, cardiomyopathy, hypertension, diabetes mellitus. She has ICD implanted by Dr. Lee in 2013, however, primary care physician indicated the patient had infection of her ICD and was changed in 2014 in [place], end-stage renal disease, on hemodialysis. MEDICATIONS: Previously, she was on medications such as benazepril, Coreg, Plavix, Lipitor, Lasix, hydralazine, Lantus, Renvela, tramadol, Eliquis 2.5 mg twice daily, Xanax. The most recent jute bag clipper is Dr. Sheldon Moore. ALLERGIES: None. SOCIAL HISTORY: She has been smoking 10 to 12 years ago, but not at the present time. No alcohol. No drugs. She apparently lives at home. 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 REVIEW OF SYSTEMS: Gastrointestinal: She denies . Constitutional: She has no fevers and chills. Pulmonary: Negative. PHYSICAL EXAMINATION: GENERAL: The patient is an elderly female obese, in no apparent respiratory distress. NECK: Supple. No jugular venous distention. No abdominojugular reflux noted. LUNGS: Clear to auscultation and percussion. CARDIAC: S1 is normal. S2 is normal. Irregularly irregular. No RV lift heaves or thrills or gallops noted. ABDOMEN: Soft and obese. Positive bowel sounds. Nontender. EXTREMITIES: There is no clubbing, cyanosis, nor is there any edema. NEUROLOGICAL: She is awake, alert, responsive, and in no apparent respiratory distress. LABORATORY AND DIAGNOSTIC DATA: Of note, her prior echocardiogram five days ago showed ejection fraction of 55% to 60%, trace aortic regurgitation, trace mitral regurgitation, and mild tricuspid regurgitation. Her chest x-ray that was performed today showed cardiomegaly. White count of 14, hemoglobin 12.6, and platelet count of 168,000. Sodium is 140, potassium 3.7, chloride 92, bicarbonate 28, BUN of 16, creatinine 7.3, and glucose of 127. Troponin . ProBNP is 6000, down from 11,044 of prior admission. PTT is 82, now on anticoagulation. The patient indicates she has not taken any Eliquis since being discharged from here, but she is sure that she has not been taking it. ASSESSMENT: 1. atrial fibrillation. 2. Tachycardia. 3. Chest pain. 4. Renal disease, on hemodialysis. 5. Morbid obesity. 6. Systemic hypertension. PLAN: The patient was seen in cardiac consultation. She is no longer experiencing any chest pain. Her blood pressure has been anywhere between 103/51 to 141/65. Most recently, her heart rate is between 99 and 116. She has intracardiac defibrillator that was previously placed. She has a normal LV function apparently according to the most recent echocardiogram here. She should be started on some beta-blockers to control her heart rate and if needed additional medication for blood pressure control. I would like to resume her back on Eliquis and will start that up again. We will discontinue heparin and start Eliquis after that. Her blood pressure medications will be adjusted to help maintain adequate level of blood pressure to allow heart rate control. She should be on some diltiazem as well as beta-blockers for heart rate control. I will start those medications tonight and discontinue the HILARIO inhibitors for the time being. Checo Santiago M.D. DR: Baljit JOB#: [id number] CC:
[2016-07-30] MEDS: NovoLOG Insulin Flexpen SUBQ SCH ×4 (05:50→21:43)
[2016-07-30 07:49] VITALS: BP 124/65
[2016-07-30 08:05] LABS: EOSINOPHILS % (AUTO) 4.1 % (0.0-3.0); LYMPHOCYTES % (AUTO) 27.9 % (20.0-45.0); MEAN CORPUSCULAR HEMOGLOBIN 32.9 PG (27.0-31.0); MEAN CORPUSCULAR HGB CONC 30.7 G/DL (32.0-36.0); MEAN CORPUSCULAR VOLUME 107 FL (80-99); MEAN PLATELET VOLUME 11.6 FL (6.5-10.1); MONOCYTES % (AUTO) 10.4 % (1.0-10.0); NEUTROPHILS % (AUTO) 56.6 % (45.0-75.0); PLATELET COUNT 155 K/UL (150-450); RED BLOOD COUNT 3.63 M/UL (4.20-5.40); RED CELL DISTRIBUTION WIDTH 15.4 % (11.6-14.8); WHITE BLOOD COUNT 10.6 K/UL (4.8-10.8)
[2016-07-30 08:07] LABS: CHOLESTEROL/HDL RATIO 4.5 (3.3-4.4); CRP QUANT 0.8 mg/dL (< 0.5)
[2016-07-30 08:12] LABS: INR 1.2 (0.9-1.1); PROTHROMBIN TIME 11.8 SEC (9.30-11.50)
[2016-07-30 08:13] LABS: TROPONIN I < 0.30 ng/mL (<=0.30)
[2016-07-30 08:18] LABS: THYROID STIMULATING HORMONE 0.711 uIU/mL (0.300-4.500)
[2016-07-30] MEDS ORDERED: Aspirin Baby 81mg ORAL SCH (09:00)
[2016-07-30] MEDS: Aspirin Baby 81mg ORAL SCH (09:14)
[2016-07-30] MEDS: Carvedilol 6.25mg Tab ORAL SCH ×2 (09:14→21:45)
[2016-07-30] MEDS: Eliquis 2.5mg tablet ORAL SCH ×2 (09:14→21:48)
--- NOTE | 2016-07-30 10:06 | Cardiology Progress Note ---
Assessment/Plan Assessment/Plan 1. Atrial flutter . 2. Tachycardia. 3. Chest pain. 4. Renal disease, on hemodialysis. 5. Morbid obesity. 6. Systemic hypertension. trop no 1 min abn on repeat all normal ekg paced tele showed now intermittent paced and spont beats heart rate controlled bp seem controlled hs of small defect in cx territory on last available ischemia evaluation at [facility] contact norma farrell has seen pt as recent at 1-2 weeks ago but he is not avialbe his opffic he no record of any stress test message left to call back may need ischemia eval unles a call bak form dr farrell indicates known neg cath for nwo khalif order stress test Subjective Cardiovascular: Reports: lightheadedness, Denies: chest pain, palpitations Respiratory: Denies: shortness of breath Gastrointestinal/Abdominal: Denies: abdominal pain Genitourinary: Denies: burning Objective Last 24 Hour Vital Signs Date Time Temp Pulse Resp B/P Pulse Ox O2 Delivery O2 Flow Rate FiO2 07/30/16 09:14 83 124/65 07/30/16 07:49 96.4 83 18 124/65 100 Room Air 07/30/16 05:41 84 134/70 07/30/16 04:00 91 07/30/16 04:00 97.7 88 20 150/86 98 Room Air 07/30/16 00:15 86 121/61 07/30/16 00:00 97.7 86 21 121/61 98 Room Air 07/30/16 00:00 83 07/29/16 21:41 83 135/65 07/29/16 20:00 97.5 83 21 135/65 98 Room Air 07/29/16 20:00 94 07/29/16 16:02 97.0 99 18 141/65 98 Room Air 07/29/16 16:00 94 07/29/16 15:33 98.2 116 20 120/75 97 Room Air 07/29/16 15:03 119 103/51 07/29/16 13:48 112 20 105/70 97 Room Air 07/29/16 12:39 84 20 82/26 97 Room Air 07/29/16 12:34 128 127/103 07/29/16 12:12 20 116/84 100 Nasal Cannula 2.0 07/29/16 12:12 120 20 Nasal Cannula 2.0 07/29/16 11:56 98.2 140 20 116/84 100 Nasal Cannula 2.0 General Appearance: alert Neck: no JVD Cardiovascular: irregularly irregular Respiratory/Chest: lungs clear Abdomen: normal bowel sounds, non tender, soft Extremities: no swelling Intake and Output 07/29/16 07/30/16 19:00 07:00 Intake Total 274.836 ml Balance 274.836 ml Intake Oral 240 ml IV Total 34.836 ml # Voids 2 # Bowel Movements 1 Laboratory Tests Test 07/29/16 12:10 07/29/16 17:32 07/30/16 06:40 White Blood Count 14.0 K/UL (4.8-10.8) H 10.6 K/UL (4.8-10.8) Red Blood Count 3.84 M/UL (4.20-5.40) L 3.63 M/UL (4.20-5.40) L Hemoglobin 12.6 G/DL (12.0-16.0) 11.9 G/DL (12.0-16.0) L Hematocrit 40.9 % (37.0-47.0) 38.8 % (37.0-47.0) Mean Corpuscular Volume 107 FL (80-99) H 107 FL (80-99) H Mean Corpuscular Hemoglobin 32.8 PG (27.0-31.0) H 32.9 PG (27.0-31.0) H Mean Corpuscular Hemoglobin Concent 30.8 G/DL (32.0-36.0) L 30.7 G/DL (32.0-36.0) L Red Cell Distribution Width 15.6 % (11.6-14.8) H 15.4 % (11.6-14.8) H Platelet Count 168 K/UL (150-450) 155 K/UL (150-450) Mean Platelet Volume 11.6 FL (6.5-10.1) H 11.6 FL (6.5-10.1) H Neutrophils (%) (Auto) 68.3 % (45.0-75.0) 56.6 % (45.0-75.0) Lymphocytes (%) (Auto) 16.9 % (20.0-45.0) L 27.9 % (20.0-45.0) Monocytes (%) (Auto) 10.7 % (1.0-10.0) H 10.4 % (1.0-10.0) H Eosinophils (%) (Auto) 2.6 % (0.0-3.0) 4.1 % (0.0-3.0) H Basophils (%) (Auto) 1.5 % (0.0-2.0) 1.0 % (0.0-2.0) Activated Partial Thromboplast Time 24 SEC (23-33) 82 SEC (23-33) H 25 SEC (23-33) Sodium Level 140 mEQ/L (135-145) Potassium Level 3.7 mEQ/L (3.4-4.9) Chloride Level 92 mEQ/L (98-107) L Carbon Dioxide Level 28 mEQ/L (20-30) Anion Gap 20 (5-15) H Blood Urea Nitrogen 60 mg/dL (7-23) H Creatinine 7.3 mg/dL (0.5-0.9) H Estimat Glomerular Filtration Rate mL/min (>60) Glucose Level 127 mg/dL (74-106) H Calcium Level 9.3 mg/dL (8.6-10.2) Total Bilirubin 1.2 mg/dL (0.0-1.2) Direct Bilirubin 0.4 mg/dL (0.1-0.3) H Aspartate Amino Transf (AST/SGOT) 17 U/L (5-40) Alanine Aminotransferase (ALT/SGPT) 8 U/L (3-33) Alkaline Phosphatase 77 U/L (35-104) Total Creatine Kinase 85 U/L (26-140) Creatine Kinase MB 3.2 ng/mL (< 3.8) Creatine Kinase MB Relative Index 3.7 Troponin I 0.32 ng/mL (<=0.30) *H < 0.30 ng/mL (<=0.30) < 0.30 ng/mL (<=0.30) Pro-B-Type Natriuretic Peptide 6333 pg/mL (0-125) H Total Protein 7.7 g/dL (6.6-8.7) Albumin 3.9 g/dL (3.5-5.2) Globulin 3.8 g/dL Albumin/Globulin Ratio 1.0 (1.0-2.7) Prothrombin Time 11.8 SEC (9.30-11.50) H Prothromb Time International Ratio 1.2 (0.9-1.1) H C-Reactive Protein, Quantitative 0.8 mg/dL (< 0.5) H Triglycerides Level 154 mg/dL (< 150) H Cholesterol Level 150 mg/dL (< 200) LDL Cholesterol 86 mg/dL (60-99) HDL Cholesterol 33 mg/dL (> 60) Cholesterol/HDL Ratio 4.5 (3.3-4.4) H Thyroid Stimulating Hormone (TSH) 0.711 uIU/mL (0.300-4.500) RD CLARK Jul 30, 2016 10:06
[2016-07-30 11:29] VITALS: BP 153/85
--- NOTE | 2016-07-30 13:50 | Pulmonology Progress Note ---
Assessment/Plan Problems: (1) NSTEMI (non-ST elevated myocardial infarction) (2) Chest pain (3) ESRF (end stage renal failure) (4) Atrial flutter Assessment/Plan serial ekg, torponin negative so far for stress test in am cardio note reviewed HD,by dr Pedroza Subjective ROS Limited/Unobtainable: No Constitutional: Reports: no symptoms HEENT: Repors: no symptoms Respiratory: Reports: no symptoms Allergies: Coded Allergies: No Known Allergies (Unverified , 07/22/16) Objective Last 24 Hour Vital Signs Date Time Temp Pulse Resp B/P Pulse Ox O2 Delivery O2 Flow Rate FiO2 07/30/16 11:36 82 153/85 07/30/16 11:29 96.4 82 18 153/85 98 Room Air 07/30/16 09:14 83 124/65 07/30/16 08:00 86 07/30/16 07:49 96.4 83 18 124/65 100 Room Air 07/30/16 05:41 84 134/70 07/30/16 04:00 91 07/30/16 04:00 97.7 88 20 150/86 98 Room Air 07/30/16 00:15 86 121/61 07/30/16 00:00 97.7 86 21 121/61 98 Room Air 07/30/16 00:00 83 07/29/16 21:41 83 135/65 07/29/16 20:00 97.5 83 21 135/65 98 Room Air 07/29/16 20:00 94 07/29/16 16:02 97.0 99 18 141/65 98 Room Air 07/29/16 16:00 94 07/29/16 15:33 98.2 116 20 120/75 97 Room Air 07/29/16 15:03 119 103/51 Intake and Output 07/29/16 07/30/16 19:00 07:00 Intake Total 274.836 ml Balance 274.836 ml Intake Oral 240 ml IV Total 34.836 ml # Voids 2 # Bowel Movements 1 General Appearance: WD/WN HEENT: normocephalic, atraumatic Respiratory/Chest: chest wall non-tender, lungs clear Cardiovascular: normal peripheral pulses, normal rate Abdomen: normal bowel sounds, soft, non tender 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 Lymphatic: no neck adenopathy Laboratory Tests 07/29/16 17:32: Activated Partial Thromboplast Time 82H, Troponin I < 0.30 07/30/16 06:40: Activated Partial Thromboplast Time 25, Troponin I < 0.30, White Blood Count 10.6, Red Blood Count 3.63L, Hemoglobin 11.9L, Hematocrit 38.8, Mean Corpuscular Volume 107H, Mean Corpuscular Hemoglobin 32.9H, Mean Corpuscular Hemoglobin Concent 30.7L, Red Cell Distribution Width 15.4H, Platelet Count 155 , Mean Platelet Volume 11.6H, Neutrophils (%) (Auto) 56.6, Lymphocytes (%) (Auto ) 27.9, Monocytes (%) (Auto) 10.4H, Eosinophils (%) (Auto) 4.1H, Basophils (%) ( Auto) 1.0, Prothrombin Time 11.8H, Prothromb Time International Ratio 1.2H, C- Reactive Protein, Quantitative 0.8H, Triglycerides Level 154H, Cholesterol Level 150, LDL Cholesterol 86, HDL Cholesterol 33, Cholesterol/HDL Ratio 4.5H, Thyroid Stimulating Hormone (TSH) 0.711 Current Medications Medications (Trade) Dose Ordered Sig/Sherry Route PRN Reason Start Time Stop Time Status Last Admin Dose Admin Acetaminophen (Tylenol) 650 mg Q4H PRN ORAL FEVER 07/29/16 15:30 08/28/16 15:29 Albuterol/ Ipratropium (DuoNeb 0.5-3(2.5)mg/3ml) 3 ml Q4H PRN HHN Shortness of Breath 07/29/16 15:30 08/03/16 15:29 Apixaban (Eliquis) 2.5 mg Q12HR ORAL 07/30/16 21:00 08/29/16 20:59 Aspirin (ASA) 81 mg DAILY ORAL 07/30/16 09:00 08/29/16 08:59 07/30/16 09:14 Carvedilol (Coreg) 6.25 mg EVERY 12 HOURS ORAL 07/29/16 21:00 08/28/16 20:59 07/30/16 09:14 Dextrose (Dextrose 50%) STAT PRN IV Hypoglycemia 07/29/16 18:15 08/28/16 18:14 Diltiazem HCl (Cardizem) 10 mg Q1H PRN IV HR > 120 07/29/16 15:30 08/28/16 15:29 Diltiazem HCl (Cardizem) 30 mg EVERY 6 HOURS ORAL 07/30/16 00:00 08/29/16 00:00 07/30/16 11:36 Enalaprilat (Vasotec) 2.5 mg Q6H PRN IV sbp more than 160 07/29/16 15:30 08/28/16 15:29 Insulin Aspart (NovoLOG) BEFORE MEALS AND HS SUBQ 07/29/16 21:00 08/28/16 20:59 07/30/16 11:33 Morphine Sulfate (Morphine Sulfate) 2 mg Q4H PRN IVP severe Pain (Pain Scale 7-10) 07/29/16 15:30 08/05/16 15:29 Nitroglycerin (Ntg) 0.4 mg Q5MIN X 3 DOSES PRN SL Prn Chest Pain 07/29/16 15:30 08/28/16 15:29 Ondansetron HCl (Zofran) 4 mg Q6H PRN IVP Nausea & Vomiting 07/29/16 15:30 08/28/16 15:29 Pantoprazole (Protonix) 40 mg DAILY ORAL 07/30/16 09:00 08/29/16 08:59 07/30/16 09:14 Polyethylene Glycol (Miralax) 17 gm DAILYPRN PRN ORAL Constipation 07/29/16 15:30 08/28/16 15:29 Temazepam (Restoril) 15 mg HSPRN PRN ORAL Insomnia 07/29/16 15:30 08/05/16 15:29 MISSY BARRY Jul 30, 2016 13:50
--- NOTE | 2016-07-30 15:15 | Consultation ---
Consult Note Consult Note Chief Complaint: Chest Pain HPI Patient is a 71-year-old female who presented after increased chest tightness. Patient had onset of symptoms during dialysis. Patient had recently been hospitalized for altered mental status. Patient had unknown length of time of dialysis prior to the chest pain onset. The patient prior history of atrial flutter with variable block. The patient was noted to have a some chest pain which was somewhat improved with nitroglycerin. The patient was given aspirin by EMS. Past Medical History: see triage record, HTN, dialysis Hx Cardiac Problems: Yes Hx Hypertension: Yes Hx Pacemaker: Yes Hx Diabetes: Yes Hx Dialysis: Yes - M-W-F Interviewed, examined- data reviewed no CP now Assessment/Plan This is a 71-year-old female with history of end-stage renal disease, on hemodialysis every Friday, Friday, and Friday. She was admitted with CP one hour into her dialysis treatment 07/29. other: - diabetes - hypertension - atrial fibrillation - status post implantable cardioverter-defibrillator placement. - Obesity Plan: Dialysis in am 07/31 adjust BP meds- Phos binders Gastric support per cardiology AUBREY SWEENEY Jul 30, 2016 15:15
[2016-07-30 15:24] VITALS: BP 131/63
[2016-07-30 20:00] VITALS: BP 146/77
[2016-07-31] VITALS (7 sets, daily range): BP systolic 110–138; BP diastolic 52–88
[2016-07-31] MEDS: NovoLOG Insulin Flexpen SUBQ SCH ×4 (06:21→23:09)
[2016-07-31 07:29] LABS: BASOPHILS % (AUTO) 1.2 % (0.0-2.0); EOSINOPHILS % (AUTO) 4.5 % (0.0-3.0); LYMPHOCYTES % (AUTO) 26.7 % (20.0-45.0); MEAN CORPUSCULAR HEMOGLOBIN 33.2 PG (27.0-31.0); MEAN CORPUSCULAR HGB CONC 30.9 G/DL (32.0-36.0); MEAN CORPUSCULAR VOLUME 107 FL (80-99); MEAN PLATELET VOLUME 11.4 FL (6.5-10.1); MONOCYTES % (AUTO) 9.3 % (1.0-10.0); NEUTROPHILS % (AUTO) 58.3 % (45.0-75.0); PLATELET COUNT 163 K/UL (150-450); RED BLOOD COUNT 3.48 M/UL (4.20-5.40); RED CELL DISTRIBUTION WIDTH 15.6 % (11.6-14.8); WHITE BLOOD COUNT 9.4 K/UL (4.8-10.8)
[2016-07-31 07:51] LABS: TROPONIN I < 0.30 ng/mL (<=0.30)
[2016-07-31 07:54] LABS: ALANINE AMINOTRANSFERASE 6 U/L (3-33); ANION GAP 22 (5-15); ASPARTATE AMINO TRANSFERASE 13 U/L (5-40); CALCIUM 9.5 mg/dL (8.6-10.2); CARBON DIOXIDE 24 mEQ/L (20-30); CHLORIDE 95 mEQ/L (98-107); CHOLESTEROL 150 mg/dL (< 200); CHOLESTEROL/HDL RATIO 4.1 (3.3-4.4); CREATININE 8.5 mg/dL (0.5-0.9); CRP QUANT 0.5 mg/dL (< 0.5); HEMOLYSIS 8; LDL CHOLESTEROL (CALC.) 86 mg/dL (60-99); PHOSPHORUS 6.4 mg/dL (2.5-4.8); POTASSIUM 3.9 mEQ/L (3.4-4.9); SODIUM 141 mEQ/L (135-145); TOTAL PROTEIN 6.7 g/dL (6.6-8.7); URIC ACID 8.7 mg/dL (3.0-7.5)
[2016-07-31 07:58] LABS: THYROID STIMULATING HORMONE 0.531 uIU/mL (0.300-4.500)
[2016-07-31] MEDS: Carvedilol 6.25mg Tab ORAL SCH ×2 (09:00→23:07)
[2016-07-31] MEDS: Eliquis 2.5mg tablet ORAL SCH ×2 (09:28→22:56)
[2016-07-31] MEDS: Aspirin Baby 81mg ORAL SCH (09:28)
--- NOTE | 2016-07-31 13:04 | Pulmonology Progress Note ---
Assessment/Plan Problems: (1) NSTEMI (non-ST elevated myocardial infarction) (2) Chest pain (3) ESRF (end stage renal failure) (4) Atrial flutter Assessment/Plan serial ekg, torponin negative so far for stress test todau cardio note reviewed HD,by dr Pedroza asymptomatic Subjective ROS Limited/Unobtainable: No HEENT: Repors: no symptoms Respiratory: Reports: no symptoms Allergies: Coded Allergies: No Known Allergies (Unverified , 07/22/16) Objective Last 24 Hour Vital Signs Date Time Temp Pulse Resp B/P Pulse Ox O2 Delivery O2 Flow Rate FiO2 07/31/16 12:00 97.0 63 17 135/63 100 Room Air 07/31/16 09:14 97.2 79 18 121/66 98 Room Air 07/31/16 09:12 Nasal Cannula 07/31/16 09:00 79 121/65 07/31/16 08:00 97.5 64 16 110/52 97 Room Air 07/31/16 07:57 76 18 Room Air 21 07/31/16 06:00 81 138/68 07/31/16 05:15 Room Air 07/31/16 05:15 97.3 80 20 124/68 99 Room Air 07/31/16 04:00 82 07/31/16 04:00 97.3 81 18 138/68 99 Room Air 07/31/16 00:00 97.5 81 18 120/88 99 Room Air 07/31/16 00:00 83 07/30/16 21:47 92 120/62 07/30/16 21:45 92 120/62 07/30/16 20:22 88 18 Room Air 21 07/30/16 20:00 97.5 81 18 146/77 100 T-piece 07/30/16 20:00 83 07/30/16 16:00 88 07/30/16 15:24 97.5 82 18 131/63 100 Room Air Intake and Output 07/30/16 07/31/16 19:00 07:00 Intake Total 460 ml Output Total 40 ml 300 ml Balance 420 ml -300 ml Intake Oral 460 ml Output Urine Total 40 ml 300 ml # Bowel Movements 1 1 General Appearance: WD/WN HEENT: normocephalic Respiratory/Chest: chest wall non-tender, lungs clear Breasts: no masses Cardiovascular: normal peripheral pulses Abdomen: normal bowel sounds Genitourinary: normal external genitalia 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 Complete Laboratory Tests 07/31/16 05:15: White Blood Count 9.4, Red Blood Count 3.48L, Hemoglobin 11.6L, Hematocrit 37.4 , Mean Corpuscular Volume 107H, Mean Corpuscular Hemoglobin 33.2H, Mean Corpuscular Hemoglobin Concent 30.9L, Red Cell Distribution Width 15.6H, Platelet Count 163, Mean Platelet Volume 11.4H, Neutrophils (%) (Auto) 58.3, Lymphocytes (%) (Auto) 26.7, Monocytes (%) (Auto) 9.3, Eosinophils (%) (Auto) 4.5H, Basophils (%) (Auto) 1.2, Sodium Level 141, Potassium Level 3.9, Chloride Level 95L, Carbon Dioxide Level 24, Anion Gap 22H, Blood Urea Nitrogen 70H, Creatinine 8.5H, Estimat Glomerular Filtration Rate , Glucose Level 129H, Uric Acid 8.7H, Calcium Level 9.5, Phosphorus Level 6.4H, Magnesium Level 2.0, Total Bilirubin 0.5, Gamma Glutamyl Transpeptidase 33, Aspartate Amino Transf (AST/ SGOT) 13, Alanine Aminotransferase (ALT/SGPT) 6, Alkaline Phosphatase 58, Total Creatine Kinase 44, Troponin I < 0.30, C-Reactive Protein, Quantitative 0.5, Pro -B-Type Natriuretic Peptide 9289H, Total Protein 6.7, Albumin 3.5, Globulin 3.2 , Albumin/Globulin Ratio 1.0, Triglycerides Level 133, Cholesterol Level 150, LDL Cholesterol 86, HDL Cholesterol 37, Cholesterol/HDL Ratio 4.1, Thyroid Stimulating Hormone (TSH) 0.531 Current Medications Medications (Trade) Dose Ordered Sig/Sherry Route PRN Reason Start Time Stop Time Status Last Admin Dose Admin Acetaminophen (Tylenol) 650 mg Q4H PRN ORAL FEVER 07/29/16 15:30 08/28/16 15:29 Albuterol/ Ipratropium (DuoNeb 0.5-3(2.5)mg/3ml) 3 ml Q4H PRN HHN Shortness of Breath 07/29/16 15:30 08/03/16 15:29 Apixaban (Eliquis) 2.5 mg Q12HR ORAL 07/30/16 21:00 08/29/16 20:59 07/31/16 09:28 Aspirin (ASA) 81 mg DAILY ORAL 07/30/16 09:00 08/29/16 08:59 07/31/16 09:28 Carvedilol (Coreg) 6.25 mg EVERY 12 HOURS ORAL 07/29/16 21:00 08/28/16 20:59 07/30/16 21:45 Dextrose (Dextrose 50%) STAT PRN IV Hypoglycemia 07/29/16 18:15 08/28/16 18:14 Diltiazem HCl (Cardizem) 10 mg Q1H PRN IV HR > 120 07/29/16 15:30 08/28/16 15:29 Diltiazem HCl (Cardizem) 60 mg EVERY 8 HOURS ORAL 07/30/16 22:00 08/29/16 21:59 07/30/16 21:47 Enalaprilat (Vasotec) 2.5 mg Q6H PRN IV sbp more than 160 07/29/16 15:30 08/28/16 15:29 Insulin Aspart (NovoLOG) BEFORE MEALS AND HS SUBQ 07/29/16 21:00 08/28/16 20:59 07/31/16 12:00 Morphine Sulfate (Morphine Sulfate) 2 mg Q4H PRN IVP severe Pain (Pain Scale 7-10) 07/29/16 15:30 08/05/16 15:29 Nitroglycerin (Ntg) 0.4 mg Q5MIN X 3 DOSES PRN SL Prn Chest Pain 07/29/16 15:30 08/28/16 15:29 Ondansetron HCl (Zofran) 4 mg Q6H PRN IVP Nausea & Vomiting 07/29/16 15:30 08/28/16 15:29 Pantoprazole (Protonix) 40 mg DAILY ORAL 07/30/16 09:00 08/29/16 08:59 07/31/16 09:28 Polyethylene Glycol (Miralax) 17 gm DAILYPRN PRN ORAL Constipation 07/29/16 15:30 08/28/16 15:29 Temazepam (Restoril) 15 mg HSPRN PRN ORAL Insomnia 07/29/16 15:30 08/05/16 15:29 MISSY BARRY Jul 31, 2016 13:04
[2016-07-31] MEDS ORDERED: Adenosine Inj IVP ONE (13:30)
--- NOTE | 2016-07-31 14:48 | General Progress Note ---
Assessment/Plan Status: stable Assessment/Plan This is a 71-year-old female with history of end-stage renal disease, on hemodialysis every Friday, Friday, and Friday. She was admitted with CP one hour into her dialysis treatment 07/29. other: - diabetes - hypertension - atrial fibrillation - status post implantable cardioverter-defibrillator placement. - Obesity Plan: Dialysis in am 07/31- done next 08/02 adjust BP meds- Phos binders Gastric support per cardiology Subjective ROS Limited/Unobtainable: No Allergies: Coded Allergies: No Known Allergies (Unverified , 07/22/16) Objective Last 24 Hour Vital Signs Date Time Temp Pulse Resp B/P Pulse Ox O2 Delivery O2 Flow Rate FiO2 07/31/16 12:00 97.0 63 17 135/63 100 Room Air 07/31/16 09:14 97.2 79 18 121/66 98 Room Air 07/31/16 09:12 Nasal Cannula 07/31/16 09:00 79 121/65 07/31/16 08:00 97.5 64 16 110/52 97 Room Air 07/31/16 07:57 76 18 Room Air 21 07/31/16 06:00 81 138/68 07/31/16 05:15 Room Air 07/31/16 05:15 97.3 80 20 124/68 99 Room Air 07/31/16 04:00 82 07/31/16 04:00 97.3 81 18 138/68 99 Room Air 07/31/16 00:00 97.5 81 18 120/88 99 Room Air 07/31/16 00:00 83 07/30/16 21:47 92 120/62 07/30/16 21:45 92 120/62 07/30/16 20:22 88 18 Room Air 21 07/30/16 20:00 97.5 81 18 146/77 100 T-piece 07/30/16 20:00 83 07/30/16 16:00 88 07/30/16 15:24 97.5 82 18 131/63 100 Room Air Intake and Output 07/30/16 07/31/16 19:00 07:00 Intake Total 460 ml Output Total 40 ml 300 ml Balance 420 ml -300 ml Intake Oral 460 ml Output Urine Total 40 ml 300 ml # Bowel Movements 1 1 Laboratory Tests 07/31/16 05:15: White Blood Count 9.4, Red Blood Count 3.48L, Hemoglobin 11.6L, Hematocrit 37.4 , Mean Corpuscular Volume 107H, Mean Corpuscular Hemoglobin 33.2H, Mean Corpuscular Hemoglobin Concent 30.9L, Red Cell Distribution Width 15.6H, Platelet Count 163, Mean Platelet Volume 11.4H, Neutrophils (%) (Auto) 58.3, Lymphocytes (%) (Auto) 26.7, Monocytes (%) (Auto) 9.3, Eosinophils (%) (Auto) 4.5H, Basophils (%) (Auto) 1.2, Sodium Level 141, Potassium Level 3.9, Chloride Level 95L, Carbon Dioxide Level 24, Anion Gap 22H, Blood Urea Nitrogen 70H, Creatinine 8.5H, Estimat Glomerular Filtration Rate , Glucose Level 129H, Uric Acid 8.7H, Calcium Level 9.5, Phosphorus Level 6.4H, Magnesium Level 2.0, Total Bilirubin 0.5, Gamma Glutamyl Transpeptidase 33, Aspartate Amino Transf (AST/ SGOT) 13, Alanine Aminotransferase (ALT/SGPT) 6, Alkaline Phosphatase 58, Total Creatine Kinase 44, Troponin I < 0.30, C-Reactive Protein, Quantitative 0.5, Pro -B-Type Natriuretic Peptide 9289H, Total Protein 6.7, Albumin 3.5, Globulin 3.2 , Albumin/Globulin Ratio 1.0, Triglycerides Level 133, Cholesterol Level 150, LDL Cholesterol 86, HDL Cholesterol 37, Cholesterol/HDL Ratio 4.1, Thyroid Stimulating Hormone (TSH) 0.531 Height (Feet): 5 Height (Inches): 1.00 Weight (Pounds): 160 General Appearance: no apparent distress Cardiovascular: normal rate Respiratory/Chest: decreased breath sounds Objective PE not changed AUBREY SWEENEY Jul 31, 2016 14:47
--- NOTE | 2016-07-31 16:23 | Diagnostic Imaging Report ---
Indications: 71-year-old female with chest pain, hypertension, pacemaker Technique: Single day single isotope protocol utilized. Initially, resting images obtained using IV administration 11.3 millicuries 99M technetium Myoview. Subsequently, patient underwent Dobutamine stress testing. See cardiology report for details. During dobutamine infusion, IV administration 30.1 mCi 99 M technetium Myoview. SPECT and planar images obtained. SPECT images gated to 8 phases of the cardiac cycle were also obtained, and reformatted into cine images for evaluation of ejection fraction. Comparison: None Findings: Per cardiology report, patient experienced no symptoms. Per cardiology report, resting EKG demonstrates atrial fibrillation with PVCs. Nonsignificant ST-T wave abnormality. No EKG changes recorded during infusion. Patient achieved a peak heart rate 155 beats for minute, well access the target heart rate 125 beats for minute. Imaging demonstrates ill-defined decreased perfusion in the inferolateral wall. Near the apex, this persists on the resting images but near the base there is apparent reperfusion. Normal left ventricular chamber size. Calculated post stress ejection fraction 47% Impression: Nonischemic clinical response to pharmacologic stress, per cardiology report Nonischemic electrocardiographic response to pharmacologic stress, per cardiology report Inferolateral perfusion defect, which appears fixed near the apex but reversible there is a base, consistent with mixed area of infarct and ischemia Calculated post stress ejection fraction 47%
--- NOTE | 2016-07-31 20:17 | Cardiology Progress Note ---
Assessment/Plan Assessment/Plan 1. Atrial flutter . 2. Tachycardia. 3. Chest pain. 4. Renal disease, on hemodialysis. 5. Morbid obesity. 6. Systemic hypertension. trop no 1 min abn on repeat all normal ekg paced tele showed now intermittent paced and spont beats heart rate controlled bp seem controlled hs of small defect in cx territory on last available ischemia evaluation at [facility] years ago d/w dr farrell and obtian record form [facility] pt with reproted non ischmeic cm stress test today agin small area of abn woudl nto pursuit ok to dc home tomorrow pt renée fu with dr farrell on dc careizem cd 240 mg dialy coerg 6.25 mg bid eliquis 2.5 mg bid pt apparently had soem bleeidng issue with higher dose fo eliquis so was placed back ot 2.5 mg bid Subjective Cardiovascular: Denies: chest pain, irregular heart rate, lightheadedness, palpitations Respiratory: Denies: shortness of breath Gastrointestinal/Abdominal: Denies: abdominal pain Genitourinary: Denies: burning Objective Last 24 Hour Vital Signs Date Time Temp Pulse Resp B/P Pulse Ox O2 Delivery O2 Flow Rate FiO2 07/31/16 19:34 73 18 Room Air 21 07/31/16 16:00 96.0 49 16 122/71 99 Room Air 07/31/16 12:00 97.0 63 17 135/63 100 Room Air 07/31/16 09:14 97.2 79 18 121/66 98 Room Air 07/31/16 09:12 Nasal Cannula 07/31/16 09:00 79 121/65 07/31/16 08:00 97.5 64 16 110/52 97 Room Air 07/31/16 07:57 76 18 Room Air 21 07/31/16 06:00 81 138/68 07/31/16 05:15 Room Air 07/31/16 05:15 97.3 80 20 124/68 99 Room Air 07/31/16 04:00 82 07/31/16 04:00 97.3 81 18 138/68 99 Room Air 07/31/16 00:00 97.5 81 18 120/88 99 Room Air 07/31/16 00:00 83 07/30/16 21:47 92 120/62 07/30/16 21:45 92 120/62 07/30/16 20:22 88 18 Room Air 21 General Appearance: no apparent distress, alert Neck: supple Cardiovascular: normal rate, regular rhythm Respiratory/Chest: lungs clear, normal breath sounds Abdomen: normal bowel sounds, non tender, soft Extremities: non-tender Intake and Output 07/30/16 07/31/16 19:00 07:00 Intake Total 460 ml Output Total 40 ml 300 ml Balance 420 ml -300 ml Intake Oral 460 ml Output Urine Total 40 ml 300 ml # Bowel Movements 1 1 Laboratory Tests Test 07/31/16 05:15 White Blood Count 9.4 K/UL (4.8-10.8) Red Blood Count 3.48 M/UL (4.20-5.40) L Hemoglobin 11.6 G/DL (12.0-16.0) L Hematocrit 37.4 % (37.0-47.0) Mean Corpuscular Volume 107 FL (80-99) H Mean Corpuscular Hemoglobin 33.2 PG (27.0-31.0) H Mean Corpuscular Hemoglobin Concent 30.9 G/DL (32.0-36.0) L Red Cell Distribution Width 15.6 % (11.6-14.8) H Platelet Count 163 K/UL (150-450) Mean Platelet Volume 11.4 FL (6.5-10.1) H Neutrophils (%) (Auto) 58.3 % (45.0-75.0) Lymphocytes (%) (Auto) 26.7 % (20.0-45.0) Monocytes (%) (Auto) 9.3 % (1.0-10.0) Eosinophils (%) (Auto) 4.5 % (0.0-3.0) H Basophils (%) (Auto) 1.2 % (0.0-2.0) Sodium Level 141 mEQ/L (135-145) Potassium Level 3.9 mEQ/L (3.4-4.9) Chloride Level 95 mEQ/L (98-107) L Carbon Dioxide Level 24 mEQ/L (20-30) Anion Gap 22 (5-15) H Blood Urea Nitrogen 70 mg/dL (7-23) H Creatinine 8.5 mg/dL (0.5-0.9) H Estimat Glomerular Filtration Rate mL/min (>60) Glucose Level 129 mg/dL (74-106) H Uric Acid 8.7 mg/dL (3.0-7.5) H Calcium Level 9.5 mg/dL (8.6-10.2) Phosphorus Level 6.4 mg/dL (2.5-4.8) H Magnesium Level 2.0 mg/dL (1.7-2.5) Total Bilirubin 0.5 mg/dL (0.0-1.2) Gamma Glutamyl Transpeptidase 33 U/L (5-36) Aspartate Amino Transf (AST/SGOT) 13 U/L (5-40) Alanine Aminotransferase (ALT/SGPT) 6 U/L (3-33) Alkaline Phosphatase 58 U/L (35-104) Total Creatine Kinase 44 U/L (26-140) Troponin I < 0.30 ng/mL (<=0.30) C-Reactive Protein, Quantitative 0.5 mg/dL (< 0.5) Pro-B-Type Natriuretic Peptide 9289 pg/mL (0-125) H Total Protein 6.7 g/dL (6.6-8.7) Albumin 3.5 g/dL (3.5-5.2) Globulin 3.2 g/dL Albumin/Globulin Ratio 1.0 (1.0-2.7) Triglycerides Level 133 mg/dL (< 150) Cholesterol Level 150 mg/dL (< 200) LDL Cholesterol 86 mg/dL (60-99) HDL Cholesterol 37 mg/dL (> 60) Cholesterol/HDL Ratio 4.1 (3.3-4.4) Thyroid Stimulating Hormone (TSH) 0.531 uIU/mL (0.300-4.500) Microbiology Date/Time Source Procedure Growth Status 07/29/16 13:55 Rectum VRE Culture - Final NO VANCOMYCIN RESISTANT ENTEROCOCCUS ... Complete RD CLARK Jul 31, 2016 20:17
[2016-08-01 04:15] VITALS: BP 115/62
[2016-08-01] MEDS: NovoLOG Insulin Flexpen SUBQ SCH ×4 (06:19→21:19)
[2016-08-01 07:59] VITALS: BP 122/63
[2016-08-01] MEDS: Aspirin Baby 81mg ORAL SCH (09:06)
[2016-08-01] MEDS: Eliquis 2.5mg tablet ORAL SCH ×2 (09:07→21:17)
[2016-08-01] MEDS: Diltiazem CD 240mg cap ORAL SCH (09:08)
[2016-08-01] MEDS: Carvedilol 6.25mg Tab ORAL SCH ×2 (09:09→21:00)
[2016-08-01 11:22] VITALS: BP 128/64
--- NOTE | 2016-08-01 14:45 | General Progress Note ---
Assessment/Plan Status: stable Assessment/Plan This is a 71-year-old female with history of end-stage renal disease, on hemodialysis every Friday, Friday, and Friday. She was admitted with CP one hour into her dialysis treatment 07/29. other: - diabetes - hypertension - atrial fibrillation - status post implantable cardioverter-defibrillator placement. - Obesity Plan: Dialysis next 08/02 adjust BP meds- Phos binders Gastric support per cardiology ? DC Subjective ROS Limited/Unobtainable: No Constitutional: Reports: malaise Allergies: Coded Allergies: No Known Allergies (Unverified , 07/22/16) Objective Last 24 Hour Vital Signs Date Time Temp Pulse Resp B/P Pulse Ox O2 Delivery O2 Flow Rate FiO2 08/01/16 11:22 96.3 81 18 128/64 100 Room Air 08/01/16 09:09 81 122/63 08/01/16 09:08 81 122/63 08/01/16 08:38 75 18 Room Air 21 08/01/16 07:59 96.6 81 18 122/63 100 Room Air 08/01/16 04:15 97.7 80 20 115/62 100 Room Air 08/01/16 04:00 81 08/01/16 02:15 89 120/67 08/01/16 00:00 91 07/31/16 23:07 94 118/60 07/31/16 20:00 97 07/31/16 19:34 73 18 Room Air 21 07/31/16 16:00 96.0 49 16 122/71 99 Room Air Intake and Output 07/31/16 08/01/16 19:00 07:00 Intake Total 840 ml Output Total 1500 ml Balance -660 ml Intake Oral 840 ml Hemodialysis UF 1500 ml # Voids 3 1 Height (Feet): 5 Height (Inches): 1.00 Weight (Pounds): 160 General Appearance: no apparent distress Objective PE not changed AUBREY SWEENEY Aug 01, 2016 14:44
[2016-08-01 15:23] VITALS: BP 96/54
--- NOTE | 2016-08-01 18:10 | Pulmonology Progress Note ---
Assessment/Plan Problems: (1) NSTEMI (non-ST elevated myocardial infarction) (2) Chest pain (3) ESRF (end stage renal failure) (4) Atrial flutter Assessment/Plan serial ekg, torponin negative so far for stress test noted, nothing remarkable cardio note reviewed HD,by dr Pedroza asymptomatic dc home in am Subjective ROS Limited/Unobtainable: No Constitutional: Reports: no symptoms HEENT: Repors: no symptoms Respiratory: Reports: no symptoms Allergies: Coded Allergies: No Known Allergies (Unverified , 07/22/16) Objective Last 24 Hour Vital Signs Date Time Temp Pulse Resp B/P Pulse Ox O2 Delivery O2 Flow Rate FiO2 08/01/16 15:23 97.7 82 18 96/54 96 Room Air 08/01/16 11:22 96.3 81 18 128/64 100 Room Air 08/01/16 09:09 81 122/63 08/01/16 09:08 81 122/63 08/01/16 08:38 75 18 Room Air 21 08/01/16 07:59 96.6 81 18 122/63 100 Room Air 08/01/16 04:15 97.7 80 20 115/62 100 Room Air 08/01/16 04:00 81 08/01/16 02:15 89 120/67 08/01/16 00:00 91 07/31/16 23:07 94 118/60 07/31/16 20:00 97 07/31/16 19:34 73 18 Room Air 21 Intake and Output 07/31/16 08/01/16 19:00 07:00 Intake Total 840 ml Output Total 1500 ml Balance -660 ml Intake Oral 840 ml Hemodialysis UF 1500 ml # Voids 3 1 Objective General Appearance: WD/WN HEENT: normocephalic Respiratory/Chest: chest wall non-tender, lungs clear, normal breath sounds, no respiratory distress Cardiovascular: normal peripheral pulses, normal rate, regular rhythm Abdomen: normal bowel sounds, soft, non tender, no organomegaly, non distended Skin: no rash 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 Lymphatic: no neck adenopathy Current Medications Medications (Trade) Dose Ordered Sig/Sherry Route PRN Reason Start Time Stop Time Status Last Admin Dose Admin Acetaminophen (Tylenol) 650 mg Q4H PRN ORAL FEVER 07/29/16 15:30 08/28/16 15:29 08/01/16 15:16 Albuterol/ Ipratropium (DuoNeb 0.5-3(2.5)mg/3ml) 3 ml Q4H PRN HHN Shortness of Breath 07/29/16 15:30 08/03/16 15:29 Apixaban (Eliquis) 2.5 mg Q12HR ORAL 07/30/16 21:00 08/29/16 20:59 08/01/16 09:07 Aspirin (ASA) 81 mg DAILY ORAL 07/30/16 09:00 08/29/16 08:59 08/01/16 09:06 Carvedilol (Coreg) 6.25 mg EVERY 12 HOURS ORAL 07/29/16 21:00 08/28/16 20:59 08/01/16 09:09 Dextrose (Dextrose 50%) STAT PRN IV Hypoglycemia 07/29/16 18:15 08/28/16 18:14 Diltiazem HCl (Cardizem CD) 240 mg DAILY ORAL 08/01/16 09:00 08/31/16 08:59 08/01/16 09:08 Diltiazem HCl (Cardizem) 10 mg Q1H PRN IV HR > 120 07/29/16 15:30 08/28/16 15:29 Enalaprilat (Vasotec) 2.5 mg Q6H PRN IV sbp more than 160 07/29/16 15:30 08/28/16 15:29 Insulin Aspart (NovoLOG) BEFORE MEALS AND HS SUBQ 07/29/16 21:00 08/28/16 20:59 08/01/16 16:30 Morphine Sulfate (Morphine Sulfate) 2 mg Q4H PRN IVP severe Pain (Pain Scale 7-10) 07/29/16 15:30 08/05/16 15:29 Nitroglycerin (Ntg) 0.4 mg Q5MIN X 3 DOSES PRN SL Prn Chest Pain 07/29/16 15:30 08/28/16 15:29 Ondansetron HCl (Zofran) 4 mg Q6H PRN IVP Nausea & Vomiting 07/29/16 15:30 08/28/16 15:29 Pantoprazole (Protonix) 40 mg DAILY ORAL 07/30/16 09:00 08/29/16 08:59 08/01/16 09:13 Polyethylene Glycol (Miralax) 17 gm DAILYPRN PRN ORAL Constipation 07/29/16 15:30 08/28/16 15:29 Sevelamer Carbonate (Renvela) 1,600 mg THREE TIMES A DAY ORAL 07/31/16 18:00 08/30/16 17:59 08/01/16 17:28 Temazepam (Restoril) 15 mg HSPRN PRN ORAL Insomnia 07/29/16 15:30 08/05/16 15:29 MISSY BARRY Aug 01, 2016 18:10
[2016-08-01 20:00] VITALS: BP 109/56
--- NOTE | 2016-08-01 20:16 | Cardiology Progress Note ---
Assessment/Plan Assessment/Plan 1. Atrial flutter . 2. Tachycardia. 3. Chest pain. 4. Renal disease, on hemodialysis. 5. Morbid obesity. 6. Systemic hypertension. trop no 1 min abn on repeat all normal ekg paced tele showed now intermittent paced and spont beats heart rate controlled bp seem controlled hs of small defect in cx territory on last available ischemia evaluation at [facility] years ago d/w dr farrell and obtian record form [facility] pt with reproted non ischmeic cm stress test today agin small area of abn woudl nto pursuit ok to dc home tomorrow pt renée fu with dr farrell on dc careizem cd 180 mg dialy coerg 6.25 mg bid eliquis 2.5 mg bid pt apparently had soem bleeidng issue with higher dose fo eliquis so was placed back ot 2.5 mg bid dc plans per dr xiao Subjective Cardiovascular: Denies: chest pain, lightheadedness, palpitations Respiratory: Denies: SOB with excertion Gastrointestinal/Abdominal: Denies: abdominal pain Objective Last 24 Hour Vital Signs Date Time Temp Pulse Resp B/P Pulse Ox O2 Delivery O2 Flow Rate FiO2 08/01/16 15:23 97.7 82 18 96/54 96 Room Air 08/01/16 11:22 96.3 81 18 128/64 100 Room Air 08/01/16 09:09 81 122/63 08/01/16 09:08 81 122/63 08/01/16 08:38 75 18 Room Air 21 08/01/16 07:59 96.6 81 18 122/63 100 Room Air 08/01/16 04:15 97.7 80 20 115/62 100 Room Air 08/01/16 04:00 81 08/01/16 02:15 89 120/67 08/01/16 00:00 91 07/31/16 23:07 94 118/60 General Appearance: no apparent distress, alert Neck: supple Cardiovascular: normal rate, regular rhythm Respiratory/Chest: lungs clear, normal breath sounds Abdomen: normal bowel sounds, non tender, soft Extremities: no swelling Intake and Output 07/31/16 08/01/16 19:00 07:00 Intake Total 840 ml Output Total 1500 ml Balance -660 ml Intake Oral 840 ml Hemodialysis UF 1500 ml # Voids [address] CLARK Aug 01, 2016 20:16
[2016-08-02] VITALS: BP 111/65
[2016-08-02 04:00] VITALS: BP 115/54
[2016-08-02] MEDS: NovoLOG Insulin Flexpen SUBQ SCH ×3 (06:01→16:32)
[2016-08-02 07:57] VITALS: BP 131/67
[2016-08-02] MEDS: Carvedilol 6.25mg Tab ORAL SCH (09:00)
[2016-08-02] MEDS: Eliquis 2.5mg tablet ORAL SCH (09:00)
[2016-08-02] MEDS: Aspirin Baby 81mg ORAL SCH (09:00)
[2016-08-02] MEDS: Diltiazem CD 240mg cap ORAL SCH (09:00)
--- NOTE | 2016-08-02 10:09 | General Progress Note ---
Assessment/Plan Status: stable Assessment/Plan This is a 71-year-old female with history of end-stage renal disease, on hemodialysis every Friday, Friday, and Friday. She was admitted with CP one hour into her dialysis treatment 07/29. other: - diabetes - hypertension - atrial fibrillation - status post implantable cardioverter-defibrillator placement. - Obesity Plan: Dialysis next 08/02- will start shortly adjust BP meds- Phos binders Gastric support per cardiology ? DC Subjective ROS Limited/Unobtainable: No Constitutional: Reports: malaise Allergies: Coded Allergies: No Known Allergies (Unverified , 07/22/16) Objective Last 24 Hour Vital Signs Date Time Temp Pulse Resp B/P Pulse Ox O2 Delivery O2 Flow Rate FiO2 08/02/16 09:23 78 18 Room Air 21 08/02/16 07:57 97.3 80 18 131/67 99 Room Air 08/02/16 04:00 99.0 80 16 115/54 97 Room Air 08/02/16 04:00 89 08/02/16 00:00 97.5 81 20 111/65 96 Room Air 2.0 21 08/02/16 00:00 88 08/01/16 21:00 80 109/56 08/01/16 20:33 80 20 Room Air 21 08/01/16 20:00 97.7 79 18 109/56 96 Room Air 2.0 21 08/01/16 20:00 80 08/01/16 15:23 97.7 82 18 96/54 96 Room Air 08/01/16 11:22 96.3 81 18 128/64 100 Room Air Intake and Output 08/01/16 08/02/16 19:00 07:00 Intake Total 640 ml 120 ml Balance 640 ml 120 ml Intake Oral 640 ml 120 ml # Voids 4 Height (Feet): 5 Height (Inches): 1.00 Weight (Pounds): 160 General Appearance: no apparent distress Objective PE not changed AUBREY SWEENEY Aug 02, 2016 10:09
[2016-08-02 11:26] VITALS: BP 125/60
[2016-08-02 15:30] VITALS: BP 136/69
[2016-08-02] MEDS ORDERED: CARDIZEM CD180 MG ORAL (17:41)
[2016-08-02] MEDS ORDERED: ELIQUIS2.5 MG PO (17:42)
[2016-08-02] MEDS ORDERED: COREG6.25 MG ORAL (17:42)
[2016-08-02 20:00] VITALS: BP 118/75
--- NOTE | 2016-08-02 20:04 | Cardiology Progress Note ---
Assessment/Plan Assessment/Plan 1. Atrial flutter . 2. Tachycardia. 3. Chest pain. 4. Renal disease, on hemodialysis. 5. Morbid obesity. 6. Systemic hypertension. trop no 1 min abn on repeat all normal ekg paced tele showed now intermittent paced and spont beats heart rate controlled bp seem controlled hs of small defect in cx territory on last available ischemia evaluation at [facility] years ago d/w dr farrell and obtian record form [facility] pt with reported non ischmeic cm stress test agin small area of abn would nto pursuit ok to dc home tomorrow pt renée fu with dr farrell on dc Cardizem cd 180 mg daily coerg 6.25 mg bid eliquis 2.5 mg bid pt apparently had soem bleeidng issue with higher dose fo eliquis so was placed back ot 2.5 mg bid i personally checked pt has the perscription i wrote for her Subjective Cardiovascular: Denies: chest pain, lightheadedness, palpitations Respiratory: Denies: shortness of breath Gastrointestinal/Abdominal: Denies: abdominal pain Genitourinary: Denies: burning Objective Last 24 Hour Vital Signs Date Time Temp Pulse Resp B/P Pulse Ox O2 Delivery O2 Flow Rate FiO2 08/02/16 16:00 126 08/02/16 15:30 96.1 81 18 136/69 99 Room Air 08/02/16 15:00 Room Air 98 08/02/16 12:00 80 08/02/16 11:55 Room Air 08/02/16 11:26 97.0 81 18 125/60 100 Room Air 08/02/16 10:05 97.3 08/02/16 09:23 78 18 Room Air 21 08/02/16 08:00 81 08/02/16 07:57 97.3 80 18 131/67 99 Room Air 08/02/16 04:00 99.0 80 16 115/54 97 Room Air 08/02/16 04:00 89 08/02/16 00:00 97.5 81 20 111/65 96 Room Air 2.0 21 08/02/16 00:00 88 08/01/16 21:00 80 109/56 08/01/16 20:33 80 20 Room Air 21 General Appearance: no apparent distress, alert Neck: no JVD Cardiovascular: normal rate, regular rhythm Respiratory/Chest: lungs clear, normal breath sounds Abdomen: normal bowel sounds, non tender, soft Extremities: no swelling Intake and Output 08/01/16 08/02/16 19:00 07:00 Intake Total 640 ml 120 ml Balance 640 ml 120 ml Intake Oral 640 ml 120 ml # Voids 4 RD CLARK Aug 02, 2016 20:04
--- NOTE | 2016-08-02 22:17 | Pulmonology Progress Note ---
Assessment/Plan Problems: (1) NSTEMI (non-ST elevated myocardial infarction) (2) Chest pain (3) ESRF (end stage renal failure) (4) Atrial flutter Assessment/Plan serial ekg, torponin negative so far for stress test noted, nothing remarkable cardio note reviewed HD,by dr Pedroza asymptomatic dc home in am Subjective Allergies: Coded Allergies: No Known Allergies (Unverified , 07/22/16) Objective Last 24 Hour Vital Signs Date Time Temp Pulse Resp B/P Pulse Ox O2 Delivery O2 Flow Rate FiO2 08/02/16 20:00 97.5 60 20 118/75 96 Room Air 08/02/16 16:00 126 08/02/16 15:30 96.1 81 18 136/69 99 Room Air 08/02/16 15:00 Room Air 98 08/02/16 12:00 80 08/02/16 11:55 Room Air 08/02/16 11:26 97.0 81 18 125/60 100 Room Air 08/02/16 10:05 97.3 08/02/16 09:23 78 18 Room Air 21 08/02/16 08:00 81 08/02/16 07:57 97.3 80 18 131/67 99 Room Air 08/02/16 04:00 99.0 80 16 115/54 97 Room Air 08/02/16 04:00 89 08/02/16 00:00 97.5 81 20 111/65 96 Room Air 2.0 21 08/02/16 00:00 88 Intake and Output 08/01/16 08/02/16 19:00 07:00 Intake Total 640 ml 120 ml Balance 640 ml 120 ml Intake Oral 640 ml 120 ml # Voids 4 Objective General Appearance: WD/WN HEENT: normocephalic Respiratory/Chest: chest wall non-tender, lungs clear, normal breath sounds, no respiratory distress Cardiovascular: normal peripheral pulses, normal rate, regular rhythm Abdomen: normal bowel sounds, soft, non tender, no organomegaly, non distended Skin: no rash 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
--- NOTE | 2016-08-05 07:24 | Discharge Summary ---
Discharge Summary Hospital Course Date of Admission Jul 29, 2016 at 13:51 Date of Discharge Aug 02, 2016 at 20:30 Admitting Diagnosis NSTEMI, ESRD HPI Ida Cruz is a 71 year old female who was admitted on Jul 29, 2016 at 13 :51 for Nstemi,End Stage Renal Disease Hospital Course dc summary #[id number] Discharge Medications Continued Medications: Apixaban (Eliquis) 2.5 Mg Tablet 2.5 MG PO BID, TAB Benazepril Hcl* (Benazepril Hcl*) 40 Mg Tablet 40 MG ORAL DAILY for 30 Days, TAB Carvedilol (Coreg) 6.25 Mg Tablet 6.25 MG ORAL EVERY 12 HOURS, TAB Clopidogrel Bisulfate* (Plavix*) 75 Mg Tablet 75 MG ORAL DAILY for 30 Days, TAB Diltiazem Hcl* (Cardizem Cd*) 180 Mg Cap.er.24h 180 MG ORAL DAILY, CAP Do not open, chew or crush capsule; swallow whole Unable to Obtain Medications (Unable To Obtain Meds) 1 Ea Ea Discontinued Medications: Apixaban (Eliquis) 2.5 Mg Tablet 5 MG ORAL Q12H for 30 Days, TAB Discharge Condition Upon Discharge: stable Discharge Disposition Patient was discharged to Home (01) Discharge Diagnoses: Discharge Instructions Discharge Instructions Special Instructions I have been assigned to complete a D/C Summary on this account. I was not involved in the patient management Arlet Mishra NP (V[place]tein) Aug 05, 2016 07:24
--- NOTE | 2016-08-05 22:37 | Discharge Summary 2 SIG ---
DATE OF ADMISSION: 07/29/2016 DATE OF DISCHARGE: 08/02/2016 The patient was admitted under Dr. Mac. REASON FOR ADMISSION: This is a 71-year-old female with history of end-stage renal disease, on hemodialysis, diabetes, hypertension, and pacemaker, presented to emergency room with a complaint of chest tightness. Onset of symptoms happened during hemodialysis. The patient with a prior history of atrial flutter with a variable block and nitroglycerin was given. Workup in the emergency department revealed atrial flutter/atrial fibrillation with rapid ventricular response. Heart rate was in 140. The patient was placed on 2 liters of oxygen via nasal cannula. Saturation 100%. No fever. Troponin was minimally elevated 0.32. ProBNP was 6333. Chest x-ray revealed cardiomegaly, otherwise no acute process. The patient admitted to telemetry for further management. ADMITTING DIAGNOSES: 1. Chest pain, rule out acute coronary syndrome. 2. Elevated troponin, possible non-ST elevation myocardial infarction. 3. Atrial flutter/atrial fibrillation with rapid ventricular response. HOSPITAL STAY: The patient admitted to telemetry floor. Cardiology consult was requested. Beta-fox and calcium channel fox added to existing regimen, restarted anticoagulation with Eliquis. Apparently, the patient was started on Eliquis from the last admission, but never took it at home. Initial troponin was 0.32 with minimal elevation. The rest of troponins were negative. EKG was pacing. Heart rate was controlled. Stress test was done as per Cardiology and stress test revealed isolated ejection fraction of 47%. Nonischemic clinical response to pharmacological stress test and nonischemical electrocardiographic response to pharmacological stress. Inferior lateral perfusion defect, appeared to be fixed near the apex, but reversible at the base consistent with a mixed area of infarct and ischemia. Director Sanitation Bureau closely followed. Director Sanitation Bureau spoke to the patient, houseman at [facility]. Apparently, the patient was diagnosed with a nonischemic cardiomyopathy. Per Cardiology, stress test revealed small amount of abnormality which he would not pursue. He discussed the findings with Dr. Moore from [facility], which the patient follows up with the outpatient. The patient started on Cardizem CD 180 mg daily and Coreg 6.25 mg b.i.d., Eliquis dose was decreased and the patient has a significant bleeding prior and that was the reason for noncompliance and to 2.5 mg b.i.d., prescription provided. Blood sugar was controlled with sliding scale of insulin was stable. Hemodialysis provided as per restaurant service manager. Renal parameters and electrolytes were closely monitored. status was monitored. Blood pressure was managed with the current regimen and it was stable. Per houseman, the patient had an intracardiac defibrillator that was previously placed. According to most recent echocardiogram, the patient had a normal left ventricular function. The patient was stable for discharge. DISCHARGE DIAGNOSES: 1. Elevated troponins. 2. Possible non-ST elevation myocardial infarction. 3. Atrial flutter/atrial fibrillation with rapid ventricular response. 4. Diabetes mellitus. 5. Hypertension. 6. Automatic implantable cardioverter-defibrillator, AICD. 7. End-stage renal disease, on hemodialysis. 8. Morbid obesity. DISCHARGE MEDICATIONS: See medication reconciliation list. DISCHARGE INSTRUCTIONS: The patient discharged home. Follow up with as outpatient with the houseman Dr. Moore from [facility], stressed importance to adhere with the medication regimen. Nakul Mac M.D. I have been assigned to dictate discharge summary on this account and I was not involved in the patient's management. Arlet Dhaliwalgow[facility] state hospitalmauri N.PThomas MEJIA: Nghia JOB#: [id number] CC:
== END 2016-08-02 20:30 | disposition home or self-care (01) | DRG 280 ==
LOC: EDBD 12:04 → EMR 12:30 → 2E 13:51 → EDBEDREQ 13:58
PROC: 5A1D60Z (ICD-10-PCS; principal; 2016-07-31)
DX: I21.4 Non-ST elevation (NSTEMI) myocardial infarction (principal); N18.6 End stage renal disease; I48.92 Unspecified atrial flutter; I12.0 Hypertensive chronic kidney disease with stage 5 chronic kidney disease or end stage renal disease; I50.9 Heart failure, unspecified; E66.01 Morbid (severe) obesity due to excess calories; Z99.2 Dependence on renal dialysis; Z68.30 Body mass index [BMI] 30.0-30.9, adult; E11.9 Type 2 diabetes mellitus without complications; Z95.810 Presence of automatic (implantable) cardiac defibrillator; Z79.4 Long term (current) use of insulin; Z79.02 Long term (current) use of antithrombotics/antiplatelets; Z79.01 Long term (current) use of anticoagulants; Z87.891 Personal history of nicotine dependence; I48.2 Chronic atrial fibrillation; R00.0 Tachycardia, unspecified
CPT/HCPCS: 36415; 71010; 78452; 80053; 80061; 82248; 82550; 82553; 82962; 82977; 83735; 83880; 84100; 84443; 84484; 84550; 85025; 85610; 85730; 86140; 87081; 93005; 93017; 94664; J1815